=== PATIENT | female | born 1950 | race Caucasian/White ===

== ENCOUNTER 2019-12-21 08:02 | Emergency (ER) | payer OTHER, MEDICARE, MEDICAID ==
[~2019-12-21] VITALS: Ht 160 cm; Wt 94.0 kg
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
[2019-12-21] MEDS ORDERED: ceFAZolin INJECTION 1,000 MG in WATER (STERILE) FOR INJECTION 10 ML IV ONE (08:15)
[2019-12-21] MEDS ORDERED: TETANUS,DIPTH,PERTUSS P/F (BOOSTRIX) 0.5 ML VIAL IM ONE (08:15)
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
--- NOTE | 2019-12-21 09:00 | NUR ---
Consent received from patient, family is updated. Plan transfer to [facility]
[2019-12-21] MEDS ORDERED: ALLO300T2 PO (09:10)
[2019-12-21] MEDS ORDERED: TRAM50TA3 PO (09:10)
[2019-12-21] MEDS ORDERED: LISI-552 PO (09:10)
[2019-12-21] MEDS ORDERED: SLF500T (09:10)
[2019-12-21] MEDS ORDERED: ASPI-999 PO (09:10)
[2019-12-21] MEDS ORDERED: GBPN600T PO (09:10)
[2019-12-21] MEDS ORDERED: GLIM1TAB4 PO (09:10)
[2019-12-21] MEDS ORDERED: ATOR20TA66 PO (09:10)
[2019-12-21] MEDS ORDERED: HYDR12.56 PO (09:10)
[2019-12-21] MEDS ORDERED: LORA10TA7 PO (09:10)
[2019-12-21] MEDS ORDERED: LEVO50TA6 PO (09:10)
[2019-12-21] MEDS ORDERED: fentaNYL INJECTION 100 MCG/2 ML AMP IVP STA (09:13)
--- NOTE | 2019-12-21 09:23 | NUR ---
Report to Gela CASTRO in Pre-op and maintaining patient NPO status [address] Carroll and no solids after midnight. Pt did take ALL home meds prescribed for a.m.
[2019-12-21 09:45] VITALS: BP 130/68
--- NOTE | 2019-12-21 09:48 | NUR ---
Notified Traci at [facility] Transfer [facility] of patient depart and ETA.
== END 2019-12-21 09:45 | disposition short-term general hospital (02) ==
LOC: ER FS 08:05
DX: S62.511B Displaced fracture of proximal phalanx of right thumb, initial encounter for open fracture (principal); Z23 Encounter for immunization; V89.2XXA Person injured in unspecified motor-vehicle accident, traffic, initial encounter
CPT/HCPCS: 73140; 90715

== ENCOUNTER 2021-04-30 12:00 | Observation (INO) | payer MEDICAID, MEDICARE, OTHER ==
[~2021-04-30] VITALS: Ht 161 cm; Wt 90.1 kg
[~2021-04-30 12:00] MED LIST: ALLO300T2 PO; ASPI-999 PO; ATOR20TA66 PO; GBPN600T PO; GLIM1TAB4 PO; HYDR12.56 PO; LEVO50TA6 PO; LISI20TA26 PO; LORA10TA7 PO; SLF500T PO; TRAM50TA3 PO
--- NOTE | 2021-04-30 12:12 | ED Respiratory ---
General Chief Complaint: Respiratory Problems Stated Complaint: SOB History of Present Illness Date Seen by Provider: Apr 30, 2021 Time Seen by Provider: 12:07 Initial Comments 70-year-old female presents with feeling of shortness of breath. Patient reports is been going on for at least a month. Patient states that she was told couple weeks ago she had pneumonia. She had a 10-day course of antibiotics within work. She reports that that antibiotic was changed to one that "did not work" that 2 days ago she was seen by Dr. Galicia and she states that she was given a steroid and her antibiotics switched. She reports that she has "half day of antibiotics left" patient denies any fever. She does have an occasional mild cough. No reports of nausea, vomiting or other systemic complaints Allergies and Home Medications Allergies Coded Allergies: No Known Drug Allergies (Unverified , 12/21/19) Patient Home Medication List Home Medication List Reviewed: Yes Allopurinol (Allopurinol) 300 Mg Tablet, 300 MG PO DAILY, (Reported) Entered as Reported by: VALE MONTANEZ on 12/21/19909 Aspirin (Aspirin) 81 Mg Tab.chew, 81 MG PO DAILY, (Reported) Entered as Reported by: VALE MONTANEZ on 12/21/19909 Atorvastatin Calcium (Atorvastatin Calcium) 20 Mg Tablet, 20 MG PO DAILY, (Reported) Entered as Reported by: VALE MONTANEZ on 12/21/19909 Gabapentin (Gabapentin) 600 Mg Tablet, 600 MG PO QID, (Reported) Entered as Reported by: VALE MONTANEZ on 12/21/19909 Glimepiride (Glimepiride) 1 Mg Tablet, 1 MG PO DAILY, (Reported) Entered as Reported by: VALE MONTANEZ on 12/21/19909 Hydrochlorothiazide (Hydrochlorothiazide) 12.5 Mg Tablet, 12.5 MG PO DAILY, (Reported) Entered as Reported by: VALE MONTANEZ on 12/21/19909 Levothyroxine Sodium (Levothyroxine Sodium) 50 Mcg Tablet, 50 MCG PO DAILY, (Reported) Entered as Reported by: VALE MONTANEZ on 12/21/19909 Lisinopril (Lisinopril) 20 Mg Tablet, 20 MG PO DAILY, (Reported) Entered as Reported by: VALE MONTANEZ on 12/21/19909 Loratadine (Loratadine) 10 Mg Tablet, 10 MG PO DAILY, (Reported) Entered as Reported by: VALE MONTANEZ on 12/21/19909 Sulfasalazine (Sulfasalazine) 500 Mg Tablet, (Reported) Entered as Reported by: VALE MONTANEZ on 12/21/19909 Tramadol HCl (Tramadol HCl) 50 Mg Tablet, 50 MG PO Q6H PRN for PAIN- BREAKTHROUGH, (Reported) Entered as Reported by: VALE MONTANEZ on 12/21/19909 Review of Systems Review of Systems Constitutional: No chills, No fever EENTM: no symptoms reported Respiratory: No cough; short of breath Cardiovascular: No chest pain, No palpitations Gastrointestinal: No abdominal pain, No nausea, No vomiting Genitourinary: no symptoms reported Musculoskeletal: no symptoms reported Skin: no symptoms reported Psychiatric/Neurological: No Symptoms Reported Past Ankfgmw-Vmcwas-Buzehb Hx Immunizations Up To Date Tetanus Booster (TDap): Unknown Seasonal Allergies Seasonal Allergies: No Past Medical History Surgeries: Yes Gallbladder, Tubal Ligation Respiratory: No Cardiac: Yes High Cholesterol, Hypertension Neurological: Yes Neuropathy [employer] History: Tubal Ligation Genitourinary: No Gastrointestinal: Yes Crohns Disease Musculoskeletal: No Endocrine: Yes Hypothyroidsim, Diabetes, Non-Insulin dep HEENT: No Cancer: No Psychosocial: No Integumentary: No Blood Disorders: No Physical Exam Vital Signs - First Documented 04/30/21 12:00 Temp 35.9 Pulse 122 Resp 20 B/P (MAP) 117/88 (98) Pulse Ox 95 O2 Delivery Room Air Capillary Refill : Height: '" Weight: lbs. oz. kg; 36.00 BMI Method: General Appearance: no apparent distress HEENT: PERRL/EOMI Neck: supple Respiratory: decreased breath sounds (mild diffuse ) Cardiovascular: normal peripheral pulses, tachycardia Gastrointestinal: non tender, soft Neurologic/Psychiatric: alert, normal mood/affect, oriented x 3 Skin: normal color, warm/dry Focused Exam Lactate Level 04/30/21 12:15: Lactic Acid Level 1.90 Lactic Acid Level Laboratory Tests Test 04/30/21 12:15 Lactic Acid Level 1.90 MMOL/L (0.50-2.00) Progress/Results/Core Measures Suspected Sepsis SIRS Temperature: Pulse: Respiratory Rate: Laboratory Tests 04/30/21 12:15: White Blood Count 14.0H Blood Pressure / Mean: 04/30/21 12:15: Lactic Acid Level 1.90 Laboratory Tests 04/30/21 12:15: Creatinine 0.69, Platelet Count 537H, Total Bilirubin 0.4 Results/Orders Lab Results Laboratory Tests Test 04/30/21 12:15 04/30/21 12:29 04/30/21 12:34 04/30/21 15:43 Range/Units White Blood Count 14.0 H 4.3-11.0 10^3/uL Red Blood Count 3.96 3.80-5.11 10^6/uL Hemoglobin 12.5 11.5-16.0 g/dL Hematocrit 38 35-52 % Mean Corpuscular Volume 95 80-99 fL Mean Corpuscular Hemoglobin 32 25-34 pg Mean Corpuscular Hemoglobin Concent 33 32-36 g/dL Red Cell Distribution Width 13.5 10.0-14.5 % Platelet Count 537 H 130-400 10^3/uL Mean Platelet Volume 8.4 L 9.0-12.2 fL Immature Granulocyte % (Auto) 1 % Neutrophils (%) (Auto) 81 H 42-75 % Lymphocytes (%) (Auto) 10 L 12-44 % Monocytes (%) (Auto) 5 0-12 % Eosinophils (%) (Auto) 2 0-10 % Basophils (%) (Auto) 1 0-10 % Neutrophils # (Auto) 11.4 H 1.8-7.8 10^3/uL Lymphocytes # (Auto) 1.4 1.0-4.0 10^3/uL Monocytes # (Auto) 0.7 0.0-1.0 10^3/uL Eosinophils # (Auto) 0.3 0.0-0.3 10^3/uL Basophils # (Auto) 0.1 0.0-0.1 10^3/uL Immature Granulocyte # (Auto) 0.1 0.0-0.1 10^3/uL Neutrophils % (Manual) 86 % Lymphocytes % (Manual) 8 % Monocytes % (Manual) 3 % Eosinophils % (Manual) 2 % Band Neutrophils 1 % Platelet Estimate INCREASED Polychromasia SLIGHT Blood Morphology Comment NORMAL D-Dimer 10.66 H 0.00-0.49 UG/ML Sodium Level 136 135-145 MMOL/L Potassium Level 4.0 3.6-5.0 MMOL/L Chloride Level 95 L 98-107 MMOL/L Carbon Dioxide Level 26 21-32 MMOL/L Anion Gap 15 H 5-14 MMOL/L Blood Urea Nitrogen 7 7-18 MG/DL Creatinine 0.69 0.60-1.30 MG/DL Estimat Glomerular Filtration Rate 94 BUN/Creatinine Ratio 10 Glucose Level 138 H 70-105 MG/DL Lactic Acid Level 1.90 0.50-2.00 MMOL/L Calcium Level 9.5 8.5-10.1 MG/DL Corrected Calcium 9.9 8.5-10.1 MG/DL Total Bilirubin 0.4 0.1-1.0 MG/DL Aspartate Amino Transf (AST/SGOT) 35 H 5-34 U/L Alanine Aminotransferase (ALT/SGPT) 26 0-55 U/L Alkaline Phosphatase 254 H 40-136 U/L Troponin I < 0.30 <0.30 NG/ML C-Reactive Protein 21.89 H <0.50 MG/DL Total Protein 7.8 6.4-8.2 GM/DL Albumin 3.5 3.2-4.5 GM/DL Influenza Type A Antigen NEGATIVE NEGATIVE Influenza Type B Antigen NEGATIVE NEGATIVE Test 04/30/21 15:46 Range/Units Blood Gas Puncture Site LT RADIAL Blood Gas Patient Temperature 35.9 C Arterial Blood pH 7.46 H 7.37-7.43 Arterial Blood Partial Pressure CO2 44 35-45 MMHG Arterial Blood Partial Pressure O2 65 L 79-93 MMHG Arterial Blood HCO3 31 H 23-27 MMOL/L Arterial Blood Total CO2 32.7 H 21.0-31.0 MMOL/L Arterial Blood Oxygen Saturation 94 94-100 % Arterial Blood Base Excess 6.6 H -2.5-2.5 MMOL/L Guille Test OK Blood Gas Ventilator Setting NO Blood Gas Inspired Oxygen 90% My Orders Orders - CALI,JACINTA L DO Cbc With Automated Diff (04/30/21 12:12) Comprehensive Metabolic Panel (04/30/21 12:12) Fibrin Degradation Products (04/30/21 12:12) Lactic Acid Analyzer (04/30/21 12:12) Chest Pa/Lat (2 View) (04/30/21 12:12) Crp Fs (04/30/21 12:12) Troponin I Fs (04/30/21 12:12) Albuterol/Ipra Inhalation Soln (Duoneb I (04/30/21 12:15) Svn Small Volume Nebulizer (04/30/21 12:12) Covid 19 Inhouse Test (04/30/21 12:12) Influenza A & B Antigens (04/30/21 12:34) Manual Differential (04/30/21 12:15) Ct Angio Chest W (04/30/21 13:06) Iohexol Injection (Omnipaque 350 Mg/Ml 1 (04/30/21 13:15) Received Contrast (Hold Metformin- Contr (04/30/21 13:15) Sodium Chloride Flush (Catheter Flush Sy (04/30/21 13:15) Ns (Ivpb) (Sodium Chloride 0.9% Ivpb Bag (04/30/21 13:15) Arterial Blood Gas (04/30/21 15:33) Tick Panel With Lyme Eia (04/30/21 15:33) Thyroid Stimulating Hormone (04/30/21 15:33) Medications Given in ED Current Medications Medications Dose Ordered Sig/Sung Route Start Time Stop Time Status Last Admin Dose Admin Albuterol/ Ipratropium 3 ml ONCE ONCE INH 04/30/21 12:15 04/30/21 12:16 DC 04/30/21 12:20 3 ML Iohexol 125 ml ONCE ONCE IV 04/30/21 13:15 04/30/21 13:16 DC 04/30/21 15:15 125 ML Sodium Chloride 10 ml NEEDED PRN IV 04/30/21 13:15 04/30/21 15:16 10 ML Sodium Chloride 100 ml ONCE ONCE IV 04/30/21 13:15 04/30/21 13:16 DC 04/30/21 15:16 100 ML Vital Signs/I&O 04/30/21 12:00 Temp 35.9 Pulse 122 Resp 20 B/P (MAP) 117/88 (98) Pulse Ox 95 O2 Delivery Room Air Capillary Refill : Progress Note : Progress Note Patient with elevated D-dimer, CRP. Patient's heart rate remains in the low 100s with her pulse ox near 92-93. CT exam shows no PE but it does show a moderate pericardial effusion, bilateral pleural effusions. Discussed with Dr. Jones who would like a ABG. After review of the ABG he felt that she would be best evaluated in a hospital setting to further determine the cause of her dyspnea. Patient to be admitted to [facility] in stable condition. Patient will be admitted to the hospitalist with Dr. Jones consult. Diagnostic Imaging Diagonstic Imaging: Xray Plain Films/CT/US/NM/MRI: chest Comments Draft Date of Exam:04/30/21 CHEST PA/LAT (2 VIEW) HISTORY: Shortness of breath TECHNIQUE: 2 views of the chest COMPARISON: None FINDINGS: There is a moderate left pleural effusion and a small right pleural effusion with associated atelectasis. The cardiac silhouette is normal in size. There is aortic atherosclerosis. No pneumothorax is seen. There are advanced degenerative changes throughout the thoracic spine. IMPRESSION: 1. Bilateral pleural effusions, left greater than right, with associated atelectasis. Reviewed: Reviewed by Me, Reviewed/Discussed Departure Impression Primary Impression: Pleural effusion Additional Impressions: Pericardial effusion Dyspnea Qualified Codes: R06.02 - Shortness of breath Disposition: 30 STILL A PATIENT Condition: Stable Admissions Decision to Admit Reason: Admit from ER (General) Decision to Admit/Date: Apr 30, 2021 Time/Decision to Admit Time: 16:39 Departure-Patient Inst. Referrals: LUL GALICIA MD (PCP/Family) Primary Care Physician JACINTA CALI DO Apr 30, 2021 12:11
[2021-04-30] MEDS ORDERED: RT-ALBUTEROL/IPRATROPIUM 3 ML (DUONEB) VIAL INH ONE (12:15)
[2021-04-30 12:26] LABS: BASOPHILS # (AUTO) 0.1 10^3/uL (0.0-0.1); BASOPHILS % (AUTO) 1 % (0-10); EOSINOPHILS # (AUTO) 0.3 10^3/uL (0.0-0.3); EOSINOPHILS % (AUTO) 2 % (0-10); HEMATOCRIT 38 % (35-52); HEMOGLOBIN 12.5 g/dL (11.5-16.0); LYMPHOCYTES # (AUTO) 1.4 10^3/uL (1.0-4.0); LYMPHOCYTES % (AUTO) 10 % (12-44); MEAN CORPUSCULAR HEMOGLOBIN 32 pg (25-34); MEAN CORPUSCULAR HGB CONC 33 g/dL (32-36); MEAN CORPUSCULAR VOLUME 95 fL (80-99); MEAN PLATELET VOLUME 8.4 fL (9.0-12.2); MONOCYTES # (AUTO) 0.7 10^3/uL (0.0-1.0); MONOCYTES % (AUTO) 5 % (0-12); NEUTROPHILS # (AUTO) 11.4 10^3/uL (1.8-7.8); NEUTROPHILS % (AUTO) 81 % (42-75); PLATELET COUNT 537 10^3/uL (130-400)
--- NOTE | 2021-04-30 12:43 | Diagnostic Imaging Report ---
HISTORY: Shortness of breath TECHNIQUE: 2 views of the chest COMPARISON: None FINDINGS: There is a moderate left pleural effusion and a small right pleural effusion with associated atelectasis. The cardiac silhouette is normal in size. There is aortic atherosclerosis. No pneumothorax is seen. There are advanced degenerative changes throughout the thoracic spine. IMPRESSION: 1. Bilateral pleural effusions, left greater than right, with associated atelectasis. Dictated by: Dictated on workstation # [id number]
[2021-04-30 13:00] LABS: BILIRUBIN,TOTAL 0.4 MG/DL (0.1-1.0); BUN/CREATININE RATIO 10; CALCIUM 9.5 MG/DL (8.5-10.1); CARBON DIOXIDE 26 MMOL/L (21-32); CHLORIDE 95 MMOL/L (98-107); CREATININE SERUM 0.69 MG/DL (0.60-1.30); GFR ESTIMATED 94; GLUCOSE 138 MG/DL (70-105); SODIUM 136 MMOL/L (135-145)
[2021-04-30 13:01] LABS: ALANINE AMINOTRANSFERASE 26 U/L (0-55); ALBUMIN 3.5 GM/DL (3.2-4.5); ALKALINE PHOSPHATASE 254 U/L (40-136); TOTAL PROTEIN 7.8 GM/DL (6.4-8.2)
[2021-04-30] MEDS ORDERED: CATHETER FLUSH 10 ML SYR IV PRN (13:15)
[2021-04-30] MEDS ORDERED: NS 100 ML (IVPB) BAG IV ONE (13:15)
[2021-04-30] MEDS ORDERED: IOHEXOL 350 MG/ML 150 ML (OMNIPAQUE 350) VIAL IV ONE (13:15)
[2021-04-30] MEDS ORDERED: HOLD METFORMIN - RECEIVED CONTRAST 20 ML VIAL IV SCH (13:15)
[2021-04-30 13:18] LABS: BAND NEUTROPHILS 1 %; LYMPHOCYTES % (MANUAL) 8 %; MONOCYTES % (MANUAL) 3 %; NEUTROPHILS % (MANUAL) 86 %
[2021-04-30 13:19] LABS: EOSINOPHILS % (MANUAL) 2 %; PLATELET ESTIMATE INCREASED; POLYCHROMASIA SLIGHT; RBC MORPH NORMAL
--- NOTE | 2021-04-30 15:22 | Diagnostic Imaging Report ---
PROCEDURE: CT angiography of the chest with contrast. TECHNIQUE: Multiple contiguous axial images were obtained through the chest after uneventful bolus administration of intravenous contrast. 3D reconstructed CTA MIP acquisitions were also performed. Auto Exposure Controls were utilized during the CT exam to meet ALARA standards for radiation dose reduction. INDICATION: Shortness of breath and elevated D-dimer. COMPARISON: No prior studies are available for comparison. FINDINGS: Evaluation of the pulmonary arterial system is without evidence of thromboembolism. No filling defects are seen within central, lobar, or segmental branches. The thoracic aorta shows atherosclerotic calcifications but is nonaneurysmal. No dissection is identified. There is a moderate-sized pericardial effusion. There are moderate bilateral pleural effusions. There is some consolidation in the lingula with air bronchograms. Dependent atelectasis and consolidation in the left lower lobe is noted. There is some compressive atelectasis in the right lower lobe. Upper abdomen is unremarkable. IMPRESSION: 1. No evidence of pulmonary embolism or acute aortic disease. 2. Pericardial effusion and bilateral pleural effusions. 3. Areas of parenchymal consolidation in the lingula and both lower lobes. Dictated by: Dictated on workstation # [id number]
[2021-04-30 16:13] LABS: ABG BASE EXCESS 6.6 MMOL/L (-2.5-2.5); ABG OXYGEN SATURATION 94 % (94-100); ABG PCO2 44 MMHG (35-45); ABG PH 7.46 (7.37-7.43); ABG PO2 65 MMHG (79-93); ABG TCO2 32.7 MMOL/L (21.0-31.0); ALLENS TEST OK; INSPIRED O2 90%; VENTILATOR NO
[2021-04-30 16:14] LABS: PATIENT TEMP 35.9 C
[2021-04-30] MEDS ORDERED: LIDOCAINE PF 2% 5 ML (XYLOCAINE) VIAL INJ ONE (17:49)
[2021-04-30] MEDS ORDERED: SUCCINYLCHOLINE INJ 20 MG/1 ML 10 ML VIAL INJ ONE (17:49)
[2021-04-30] MEDS ORDERED: LIDOCAINE PF 1% 2 ML VIAL IJ ONE (17:49)
[2021-04-30 18:00] VITALS: BP 141/74
[2021-04-30] MEDS ORDERED: NALOXONE 0.4 MG/ML 1 ML (NARCAN) VIAL IV PRN (18:00)
[2021-04-30] MEDS ORDERED: polyethylene glycoL POWDER 17 GM (MIRALAX) PACK PO PRN (18:00)
[2021-04-30] MEDS ORDERED: diphenhydrAMINE 25 MG TAB (BENADRYL) PO PRN (18:00)
[2021-04-30] MEDS ORDERED: diphenhydrAMINE 50 MG/ML INJ (BENADRYL) IVP PRN (18:00)
[2021-04-30] MEDS ORDERED: ANTACID SUSP 30 ML UDC (MYLANTA) PO PRN (18:00)
[2021-04-30] MEDS ORDERED: BISACODYL 10 MG SUPP (DULCOLAX) PR PRN (18:00)
[2021-04-30] MEDS ORDERED: ONDANSETRON 4 MG/2 ML (SDV) Z0FRAN IV PRN (18:00)
[2021-04-30] MEDS ORDERED: MELATONIN 3 MG TABLET PO PRN (18:00)
[2021-04-30] MEDS ORDERED: ONDANSETRON 4 MG (ZOFRAN) ORAL DISSOLVE TAB PO PRN (18:00)
[2021-04-30] MEDS ORDERED: morphine INJ 4 MG/ML 1 ML (VIAL/SYRINGE) IV PRN (18:00)
[2021-04-30] MEDS ORDERED: ACETAMINOPHEN 325 MG TABLET PO PRN (18:00)
[2021-04-30 18:15] VITALS: BP 117/88
[2021-04-30] MEDS ORDERED: NS IV 1000 ML 1,000 ML ONE (18:15)
[2021-04-30] MEDS: NS IV 1000 ML 1,000 ML IV SCH (18:21)
[2021-04-30] MEDS: ENOXAPARIN 100 MG/1 ML (LOVENOX) SYR SC SCH (18:36)
[2021-04-30] MEDS ORDERED: RT-ALBUTEROL/IPRATROPIUM 3 ML (DUONEB) VIAL INH PRN (19:00)
[2021-04-30] MEDS: DOCUSATE SODIUM 100 MG (COLACE) CAP PO SCH (19:27)
[2021-04-30 19:28] VITALS: BP 141/74
[2021-04-30 19:32] VITALS: BP 139/75
--- NOTE | 2021-04-30 20:18 | Consultation - Surgery ---
History of Present Illness History of Present Illness Patient Consulted On(braxton/time) 04/30/21 20:09 Time Seen by Provider: 18:56 History of Present Illness Surgery asked to consult regarding Pleural effusion and possible need for Bronchoscopy. HPI per ED: 70-year-old female presents with feeling of shortness of breath. Patient reports is been going on for at least a month. Patient states that she was told couple weeks ago she had pneumonia. She had a 10-day course of antibiotics within work. She reports that that antibiotic was changed to one that "did not work" that 2 days ago she was seen by Dr. Aldrich and she states that she was given a steroid and her antibiotics switched. She reports that she has "half day of antibiotics left" patient denies any fever. She does have an occasional mild cough. No reports of nausea, vomiting or other systemic complaints When I spoke to pt maylin she states she has had pneumonia for over a month now and has been on multiple ABX. She states about a month ago was having some trouble breathing and was told she had pneumonia, took ABX for 10 days; but wasn't any better. All of this started with pain on the left side, after the fi rst round of ABX didn't work she was started on a different ABX. However, then she got pain on the right side and so her doctor stopped the second ABX. She stated when she lies on her left side, "I cough up a bunch of junk. Clear and slimy." She denied coughing anything up green or yellow. Prior to this she denies any lung problems. She states she has smoked about a pack per day since she was 18. Allergies and Home Medications Allergies Coded Allergies: No Known Drug Allergies (Unverified , 12/21/19) Patient Home Medication List Home Medication List Reviewed: Yes Allopurinol (Allopurinol) 300 Mg Tablet, 300 MG PO DAILY, (Reported) Entered as Reported by: VALE MONTANEZ on 12/21/19909 Aspirin (Aspirin) 81 Mg Tab.chew, 81 MG PO DAILY, (Reported) Entered as Reported by: VALE MONTANEZ on 12/21/19 09 Atorvastatin Calcium (Atorvastatin Calcium) 20 Mg Tablet, 20 MG PO DAILY, (Reported) Entered as Reported by: VALE MONTANEZ on 12/21/19909 Gabapentin (Gabapentin) 600 Mg Tablet, 600 MG PO QID, (Reported) Entered as Reported by: VALE MONTANEZ on 12/21/19909 Glimepiride (Glimepiride) 1 Mg Tablet, 1 MG PO DAILY, (Reported) Entered as Reported by: VALE MONTANEZ on 12/21/19909 Hydrochlorothiazide (Hydrochlorothiazide) 12.5 Mg Tablet, 12.5 MG PO DAILY, (Reported) Entered as Reported by: VALE MONTANEZ on 12/21/19909 Levothyroxine Sodium (Levothyroxine Sodium) 50 Mcg Tablet, 50 MCG PO DAILY, (Reported) Entered as Reported by: VALE MONTANEZ on 12/21/19909 Lisinopril (Lisinopril) 20 Mg Tablet, 20 MG PO DAILY, (Reported) Entered as Reported by: VALE MONTANEZ on 12/21/19909 Loratadine (Loratadine) 10 Mg Tablet, 10 MG PO DAILY, (Reported) Entered as Reported by: VALE MONTANEZ on 12/21/19909 Sulfasalazine (Sulfasalazine) 500 Mg Tablet, (Reported) Entered as Reported by: VALE MONTANEZ on 12/21/19909 Tramadol HCl (Tramadol HCl) 50 Mg Tablet, 50 MG PO Q6H PRN for PAIN- BREAKTHROUGH, (Reported) Entered as Reported by: VALE MONTANEZ on 12/21/19909 Past Pwzzjor-Mjockq-Xqhcjr Hx Patient Social History Smoking Status: Current Everyday Smoker Type Used: Cigarettes 2nd Hand Smoke Exposure: Yes Recent Hopitalizations: No Alcohol Use?: No Have you traveled recently?: No Immunizations Up To Date Tetanus Booster (TDap): Unknown Date of Influenza Vaccine: Oct 31, 2020 Seasonal Allergies Seasonal Allergies: No Surgeries History of Surgeries: Yes Surgeries: Gallbladder, Tubal Ligation Respiratory History of Respiratory Disorde: No Cardiovascular History of Cardiac Disorders: Yes Cardiac Disorders: High Cholesterol, Hypertension Neurological History of Neurological Disord: Yes Neurological Disorders: Neuropathy 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 Genitourinary History of Genitourinary Disor: No Gastrointestinal History of Gastrointestinal Di: Yes Gastrointestinal Disorders: Crohns Disease Musculoskeletal History of Musculoskeletal Dis: No Endocrine History of Endocrine Disorders: Yes Endocrine Disorders: Hypothyroidsim, Diabetes, Non-Insulin dep HEENT History of HEENT Disorders: No Hearing Impairment: Denies Cancer History of Cancer: No Psychosocial History of Psychiatric Problem: No Integumentary History of Skin or Integumenta: No Blood Transfusions History of Blood Disorders: No Family Medical History Significant Family History: Heart Disease (Mother from [place]), Hypertension (Father) Review of Systems-General Constitutional: No chills, No diaphoresis; malaise EENTM: No blurred vision, No double vision Respiratory: cough; No dyspnea on exertion, No hemoptysis; short of breath Cardiovascular: No chest pain, No edema Gastrointestinal: No abdominal pain, No jaundice, No melena, No nausea, No vomiting Genitourinary: No dysuria, No frequency, No hematuria : No Musculoskeletal: muscle pain, muscle stiffness Skin: No change in color, No change in hair/nails Psychiatric/Neurological: Denies Anxiety, Denies Depressed; Paresthesia; Denies Seizure, Denies Tremors Physical Exam-General Problems Physical Exam Vital Signs Vital Signs - First Documented 04/30/21 04/30/21 04/30/21 12:00 16:58 18:15 Temp 35.9 Pulse 122 Resp 20 B/P (MAP) 117/88 (98) Pulse Ox 95 O2 Delivery Room Air O2 Flow Rate 2.00 FiO2 21 Capillary Refill : Less Than 3 Seconds General Appearance: no apparent distress, obese Eyes: Bilateral Eye PERRL, Bilateral Eye EOMI HEENT: pharynx normal; No scleral icterus (R), No scleral icterus (L) Neck: non-tender, supple Respiratory: chest non-tender, no respiratory distress, no accessory muscle use, decreased breath sounds (bilaterally left greater than right at bases ), crackles (left base) Cardiovascular: no murmur, tachycardia (??muffled) Gastrointestinal: non tender, soft, no organomegaly, no pulsatile mass Back: no CVA tenderness, no vertebral tenderness Extremities: no pedal edema, no calf tenderness 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, alert, oriented x 3 Skin: normal color, warm/dry Lymphatic: no adenopathy (neck, axilla or groin) Data Review Labs Laboratory Tests 04/30/21 12:15: White Blood Count 14.0H, Red Blood Count 3.96, Hemoglobin 12.5, Hematocrit 38, Mean Corpuscular Volume 95, Mean Corpuscular Hemoglobin 32, Mean Corpuscular Hemoglobin Concent 33, Red Cell Distribution Width 13.5, Platelet Count 537H, Mean Platelet Volume 8.4L, Immature Granulocyte % (Auto) 1, Neutrophils (%) (Auto) 81H, Lymphocytes (%) (Auto) 10L, Monocytes (%) (Auto) 5, Eosinophils (%) (Auto) 2, Basophils (%) (Auto) 1, Neutrophils # (Auto) 11.4H, Lymphocytes # (Auto) 1.4, Monocytes # (Auto) 0.7, Eosinophils # (Auto) 0.3, Basophils # (Auto) 0.1, Immature Granulocyte # (Auto) 0.1, Neutrophils % (Manual) 86, Lymphocytes % (Manual) 8, Monocytes % (Manual) 3, Eosinophils % (Manual) 2, Band Neutrophils 1, Platelet Estimate INCREASED, Polychromasia SLIGHT, Blood Morphology Comment NORMAL, D-Dimer 10.66H, Sodium Level 136, Potassium Level 4.0, Chloride Level 95L, Carbon Dioxide Level 26, Anion Gap 15H, Blood Urea Nitrogen 7, Creatinine 0.69, Estimat Glomerular Filtration Rate 94, BUN/Creatinine Ratio 10, Glucose Level 138H, Lactic Acid Level 1.90, Calcium Level 9.5, Corrected Calcium 9.9, Total Bilirubin 0.4, Aspartate Amino Transf (AST/SGOT) 35H, Alanine Aminotransferase (ALT/SGPT) 26, Alkaline Phosphatase 254H, Troponin I < 0.30, C- Reactive Protein 21.89H, Total Protein 7.8, Albumin 3.5 04/30/21 12:29: SARS-CoV-2 RNA (RT-PCR) Not Detected 04/30/21 12:34: Influenza Type A Antigen NEGATIVE, Influenza Type B Antigen NEGATIVE 04/30/21 15:43: 04/30/21 15:46: Blood Gas Puncture Site LT RADIAL, Blood Gas Patient Temperature 35.9 C, Arterial Blood pH 7.46H, Arterial Blood Partial Pressure CO2 44, Arterial Blood Partial Pressure O2 65L, Arterial Blood HCO3 31H, Arterial Blood Total CO2 32.7H , Arterial Blood Oxygen Saturation 94, Arterial Blood Base Excess 6.6H, Guille Test OK, Blood Gas Ventilator Setting NO, Blood Gas Inspired Oxygen 90% Radiology Date of Exam:04/30/21 CT ANGIO CHEST W PROCEDURE: CT angiography of the chest with contrast. TECHNIQUE: Multiple contiguous axial images were obtained through the chest after uneventful bolus administration of intravenous contrast. 3D reconstructed CTA MIP acquisitions were also performed. Auto Exposure Controls were utilized during the CT exam to meet ALARA standards for radiation dose reduction. INDICATION: Shortness of breath and elevated D-dimer. COMPARISON: No prior studies are available for comparison. FINDINGS: Evaluation of the pulmonary arterial system is without evidence of thromboembolism. No filling defects are seen within central, lobar, or segmental branches. The thoracic aorta shows atherosclerotic calcifications but is nonaneurysmal. No dissection is identified. There is a moderate-sized pericardial effusion. There are moderate bilateral pleural effusions. There is some consolidation in the lingula with air bronchograms. Dependent atelectasis and consolidation in the left lower lobe is noted. There is some compressive atelectasis in the right lower lobe. Upper abdomen is unremarkable. IMPRESSION: 1. No evidence of pulmonary embolism or acute aortic disease. 2. Pericardial effusion and bilateral pleural effusions. 3. Areas of parenchymal consolidation in the lingula and both lower lobes. Dictated by: Dictated on workstation # [id number] Dict: 04/30/21 1515 Trans: 04/30/21 1547 [id number] Interpreted by: MARSHALL JOHNSON MD Electronically signed by: MARSHALL JOHNSON MD 04/30/21 1547 Assessment/Plan Assessment/Plan Assessment/Plan Bilateral Pleural Effusions Pericardial Effusion Pneumonia Pt may benefit from Bronchoscopy, it will at the very least give us some more information; she has been treated for pneumonia for a month with basically no improvement. She also needs Cardiology consult regarding her pericardial effusion; although, I don't think she has any indications of tamponade or need for pericardiocentesis at this time. O2 as needed, monitor Pulse ox and vitals. Clears after midnight and nothing after 9am for possible Bronchoscopy tomorrow. HI VELÁSQUEZ DO Apr 30, 2021 20:18
[2021-04-30] MEDS: inSUlin ASPART (NovoLOG) 1 UNIT/0.01 ML (CHARGE PER UNIT) SC SCH (20:41)
[2021-04-30] MEDS: RT-ALBUTEROL/IPRATROPIUM 3 ML (DUONEB) VIAL INH SCH (22:08)
[2021-04-30 23:40] VITALS: BP 147/74
[2021-05-01] VITALS (13 sets, daily range): BP systolic 109–170; BP diastolic 56–107
[2021-05-01] MEDS: RT-ALBUTEROL/IPRATROPIUM 3 ML (DUONEB) VIAL INH SCH ×4 (02:59→23:12)
[2021-05-01] MEDS: ENOXAPARIN 100 MG/1 ML (LOVENOX) SYR SC SCH ×2 (05:04→17:38)
[2021-05-01] MEDS: inSUlin ASPART (NovoLOG) 1 UNIT/0.01 ML (CHARGE PER UNIT) SC SCH ×4 (05:04→21:08)
[2021-05-01 05:26] LABS: BASOPHILS # (AUTO) 0.1 10^3/uL (0.0-0.1); BASOPHILS % (AUTO) 0 % (0-10); EOSINOPHILS # (AUTO) 0.4 10^3/uL (0.0-0.3); EOSINOPHILS % (AUTO) 3 % (0-10); HEMATOCRIT 36 % (35-52); HEMOGLOBIN 11.4 g/dL (11.5-16.0); LYMPHOCYTES # (AUTO) 1.4 10^3/uL (1.0-4.0); LYMPHOCYTES % (AUTO) 9 % (12-44); MEAN CORPUSCULAR HEMOGLOBIN 31 pg (25-34); MEAN CORPUSCULAR HGB CONC 32 g/dL (32-36); MEAN CORPUSCULAR VOLUME 98 fL (80-99); MEAN PLATELET VOLUME 8.5 fL (9.0-12.2); MONOCYTES # (AUTO) 0.9 10^3/uL (0.0-1.0); MONOCYTES % (AUTO) 6 % (0-12); NEUTROPHILS # (AUTO) 11.9 10^3/uL (1.8-7.8); NEUTROPHILS % (AUTO) 82 % (42-75); PLATELET COUNT 493 10^3/uL (130-400); WHITE BLOOD COUNT 14.6 10^3/uL (4.3-11.0)
[2021-05-01 05:29] LABS: ALBUMIN 3.2 GM/DL (3.2-4.5); POTASSIUM 3.9 MMOL/L (3.6-5.0)
[2021-05-01 05:30] LABS: CALCIUM 9.4 MG/DL (8.5-10.1)
[2021-05-01 05:31] LABS: TOTAL PROTEIN 6.9 GM/DL (6.4-8.2)
[2021-05-01 05:33] LABS: BILIRUBIN,TOTAL 0.4 MG/DL (0.1-1.0)
[2021-05-01 05:35] LABS: CREATININE SERUM 0.72 MG/DL (0.60-1.30)
--- NOTE | 2021-05-01 06:29 | History & Physical-Hospitalist ---
History of Present Illness HPI/Chief Complaint Chief complaint: Shortness of breath History of present illness: This is a 70-year-old white female who presented to [facility] with shortness of breath. She had been struggling with upper respiratory illnesses and pneumonias and has had 3 rounds of antibiotics from her PCP but continued to worsen. She was found to have bilateral pleural effusions and a pericardial effusion and requiring oxygen supplementation for hypoxia. Dr. Arredondo was willing to perform a bronchoscopy and Dr. Jones is pursuing sources of causation of pleural effusions. Patient does not appear to have any active infection. She is not willing to provide details because she just wants to go home. She appears to be very chronically ill and she does smoke. Source: patient Exam Limitations: other (Unwilling to provide details in depth) Date Seen 05/01/21 Time Seen by a Provider: 10:00 Attending Physician Yeny Hardwick Pankaj K MD Referring Physician Date of Admission Apr 30, 2021 at 17:48 Home Medications & Allergies Home Medications Reviewed patient Home Medication Reconciliation performed by pharmacy medication reconciliations bench lay out technician and/or nursing. Patients Allergies have been reviewed. Allergies Allergies Coded Allergies No Known Drug Allergies (Juosligpga72/30/20) Past Lqpwbka-Atxgee-Fjomhz Hx Patient Social History Marrital Status: Employed/Student: retired Tobacco Use?: Yes Tobacco type used: Cigarettes Smoking Status: Current Everyday Smoker Substance use?: No Alcohol Use?: No Pt feels they are or have been: No Immunizations Up To Date Date of Influenza Vaccine: Oct 31, 2020 First/Initial COVID19 Vaccinat: Yes Second COVID19 Vaccination Philip: Yes Tetanus Booster (TDap): Unknown Seasonal Allergies Seasonal Allergies: No Current Status status: No status: No Advance Directives: No Communicates: Verbally Primary Language: Czech Preferred Spoken Language: Czech Is interpretation needed?: No Sensory deficits: Vision impairment Implanted or Applied Medical D: None Past Medical History Surgeries: Gallbladder, Tubal Ligation High Cholesterol, Hypertension 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 Crohns Disease Hypothyroidsim, Diabetes, Non-Insulin dep Hearing Impairment: Denies Blood Disorders: No Family Medical History Heart Disease (Mother from [place]), Hypertension (Father) Review of Systems Constitutional: see HPI, malaise, weakness EENTM: no symptoms reported Respiratory: dyspnea on exertion Cardiovascular: no symptoms reported Gastrointestinal: no symptoms reported Genitourinary: no symptoms reported Musculoskeletal: no symptoms reported Skin: no symptoms reported Psychiatric/Neurological: No Symptoms Reported All Other Systems Reviewed Negative Unless Noted: Yes Physical Exam Physical Exam Vital Signs Vital Signs - First Documented 04/30/21 04/30/21 04/30/21 12:00 16:58 18:15 Temp 35.9 Pulse 122 Resp 20 B/P (MAP) 117/88 (98) Pulse Ox 95 O2 Delivery Room Air O2 Flow Rate 2.00 FiO2 21 Capillary Refill : Less Than 3 Seconds Height, Weight, BMI Height: '" Weight: lbs. oz. kg; 33.75 BMI Method: General Appearance: No Apparent Distress, Chronically ill, Obese Eyes: Right Eye Normal Inspection, Right Eye PERRL HEENT: PERRL/EOMI, Normal ENT Inspection, Pharynx Normal, Moist Mucous Membranes Neck: Full Range of Motion, Normal Inspection, Non Tender Respiratory: Chest Non Tender, Lungs Clear, Normal Breath Sounds, No Accessory Muscle Use, No Respiratory Distress Cardiovascular: Regular Rate, Rhythm, No Edema, No Gallop, No JVD, No Murmur, Normal Peripheral Pulses Gastrointestinal: Normal Bowel Sounds, No Organomegaly, No Pulsatile Mass, Non Tender, Soft Back: Normal Inspection, No CVA Tenderness, No Vertebral Tenderness Extremity: Normal Capillary Refill, Normal Inspection, Normal Range of Motion, Non Tender, No Calf Tenderness, No Pedal Edema Neurologic/Psychiatric: Alert, Oriented x3, No Motor/Sensory Deficits, Depressed Affect Skin: Normal Color, Warm/Dry Lymphatic: No Adenopathy Results Results/Procedures Labs Laboratory Tests 04/30/21 12:15 05/01/21 05:10 Patient resulted labs reviewed. Assessment/Plan Admission Diagnosis Assessment: Dyspnea Recurrent pneumonia completed multiple rounds of antibiotics Hypoxia requiring supplemental oxygen Pericardial effusion Pleural effusions Smoker Crohn's disease Hypothyroidism Diabetes Hypertension Plan: Bronchoscopy Dr. Jones Consult Oxygen Admission Status: Inpatient Order (span 2 midnights) Reason for Inpatient Admission: Pleural effusions and pericardial effusion Diagnosis/Problems Diagnosis/Problems (1) Pericardial effusion Status: Acute (2) Dyspnea Status: Acute Qualifiers: Dyspnea type: shortness of breath Qualified Codes: R06.02 - Shortness of breath (3) Pleural effusion Status: Acute YENY HARDWICK DO May 01, 2021 06:29
[2021-05-01] MEDS: DOCUSATE SODIUM 100 MG (COLACE) CAP PO SCH ×2 (07:32→21:07)
--- NOTE | 2021-05-01 08:50 | Progress Note - Surgery ---
LAURA MCCLELLAN 05/01/21 0850: Subjective Date Seen by a Provider: May 01, 2021 Time Seen by a Provider: 08:30 Subjective/Events-last exam Pt unsettled this morning, wants to go home. She was NPO overnight and was very thirsty. She was given a glass of water before 9am. The patient's only complaints are coughing fits (she coughs up clear phlegm) and chronic neuropathy in her feet. She had a bowel movement yesterday that was brown with no blood. Wants to speak with Dr. Arredondo about the bronchoscopy. Does not remember speaking with him last night; not sure if she wants to have it done. Denies CP, SOB, N/V/D, and fever at this time. Review of Systems General: No Chills; Fatigue HEENT: No Head Aches, No Visual Changes Pulmonary: No Dyspnea; Cough Cardiovascular: No: Chest Pain, Palpitations Gastrointestinal: No: Nausea, Vomiting, Abdominal Pain, Diarrhea Genitourinary: No Dysuria, No Frequency Musculoskeletal: No: neck pain, leg pain Neurological: No: Weakness, Change in speech Focused Exam Lactate Level 04/30/21 12:15: Lactic Acid Level 1.90 Respiratory: No Accessory Muscle Use, No Respiratory Distress, Decreased Breath Sounds, Wheezing Cardiovascular: No Murmur, Tachycardia Peripheral Pulses: 2+ Radial Pulses (R), 2+ Radial Pulses (L) Skin: normal color, warm/dry Objective Exam Vital Signs Date Time Temp Pulse Resp B/P (MAP) Pulse Ox O2 Delivery O2 Flow Rate FiO2 05/01/21 07:00 106 14 95 Nasal Cannula 4.00 05/01/21 07:00 111 05/01/21 05:07 95 Nasal Cannula 4.00 05/01/21 03:41 36.4 114 18 145/84 (104) 94 Nasal Cannula 4.00 05/01/21 02:59 97 Nasal Cannula 4.00 05/01/21 02:27 95 Nasal Cannula 4.00 05/01/21 01:00 115 04/30/21 23:40 36.6 112 18 147/74 (98) 95 Nasal Cannula 4.00 04/30/21 22:26 95 Nasal Cannula 4.00 04/30/21 22:11 Nasal Cannula 4.00 04/30/21 20:45 96 Nasal Cannula 4.00 04/30/21 19:32 110 18 139/75 (96) 96 Nasal Cannula 2.00 04/30/21 18:15 35.9 122 95 21 04/30/21 18:08 109 04/30/21 18:00 112 17 141/74 (96) 89 Nasal Cannula 2.00 04/30/21 18:00 95 Nasal Cannula 4.00 04/30/21 17:47 36.1 112 26 141/74 95 Nasal Cannula 4.00 04/30/21 16:58 35.9 105 18 116/95 98 Nasal Cannula 2.00 04/30/21 12:00 35.9 122 20 117/88 (98) 95 Room Air I & O 05/01/21 07:00 Intake Total 1420 ml Output Total 500 ml Balance 920 ml Capillary Refill : Less Than 3 Seconds General Appearance: Anxious (to go home), Obese Respiratory: No Accessory Muscle Use, No Respiratory Distress, Decreased Breath Sounds, Wheezing Cardiovascular: No Murmur, Tachycardia Peripheral Pulses: 2+ Radial Pulses (R), 2+ Radial Pulses (L) Gastrointestinal: non tender, soft, no organomegaly, no pulsatile mass Extremity: Normal Inspection, Pedal Edema Neurologic/Psychiatric: Alert, Oriented x3, Normal Mood/Affect Skin: Normal Color, Warm/Dry Results Lab Laboratory Tests 04/30/21 12:15: White Blood Count 14.0H, Red Blood Count 3.96, Hemoglobin 12.5, Hematocrit 38, Mean Corpuscular Volume 95, Mean Corpuscular Hemoglobin 32, Mean Corpuscular Hemoglobin Concent 33, Red Cell Distribution Width 13.5, Platelet Count 537H, Mean Platelet Volume 8.4L, Immature Granulocyte % (Auto) 1, Neutrophils (%) (Auto) 81H, Lymphocytes (%) (Auto) 10L, Monocytes (%) (Auto) 5, Eosinophils (%) (Auto) 2, Basophils (%) (Auto) 1, Neutrophils # (Auto) 11.4H, Lymphocytes # (Auto) 1.4, Monocytes # (Auto) 0.7, Eosinophils # (Auto) 0.3, Basophils # (Auto) 0.1, Immature Granulocyte # (Auto) 0.1, Neutrophils % (Manual) 86, Lymphocytes % (Manual) 8, Monocytes % (Manual) 3, Eosinophils % (Manual) 2, Band Neutrophils 1, Platelet Estimate INCREASED, Polychromasia SLIGHT, Blood Morphology Comment NORMAL, D-Dimer 10.66H, Sodium Level 136, Potassium Level 4.0, Chloride Level 95L, Carbon Dioxide Level 26, Anion Gap 15H, Blood Urea Nitrogen 7, Creatinine 0.69, Estimat Glomerular Filtration Rate 94, BUN/Creatinine Ratio 10, Glucose Level 138H, Lactic Acid Level 1.90, Calcium Level 9.5, Corrected Calcium 9.9, Total Bilirubin 0.4, Aspartate Amino Transf (AST/SGOT) 35H, Alanine Aminotransferase (ALT/SGPT) 26, Alkaline Phosphatase 254H, Troponin I < 0.30, C- Reactive Protein 21.89H, Total Protein 7.8, Albumin 3.5 04/30/21 12:29: SARS-CoV-2 RNA (RT-PCR) Not Detected 04/30/21 12:34: Influenza Type A Antigen NEGATIVE, Influenza Type B Antigen NEGATIVE 04/30/21 15:43: 04/30/21 15:46: Blood Gas Puncture Site LT RADIAL, Blood Gas Patient Temperature 35.9 C, Arterial Blood pH 7.46H, Arterial Blood Partial Pressure CO2 44, Arterial Blood Partial Pressure O2 65L, Arterial Blood HCO3 31H, Arterial Blood Total CO2 32.7H , Arterial Blood Oxygen Saturation 94, Arterial Blood Base Excess 6.6H, Guille Test OK, Blood Gas Ventilator Setting NO, Blood Gas Inspired Oxygen 90% 04/30/21 20:37: Glucometer 112H 05/01/21 05:02: Glucometer 116H 05/01/21 05:10: White Blood Count 14.6H, Red Blood Count 3.68L, Hemoglobin 11.4L, Hematocrit 36, Mean Corpuscular Volume 98, Mean Corpuscular Hemoglobin 31, Mean Corpuscular Hemoglobin Concent 32, Red Cell Distribution Width 13.7, Platelet Count 493H, Mean Platelet Volume 8.5L, Immature Granulocyte % (Auto) 1, Neutrophils (%) (Auto) 82H, Lymphocytes (%) (Auto) 9L, Monocytes (%) (Auto) 6, Eosinophils (%) (Auto) 3, Basophils (%) (Auto) 0, Neutrophils # (Auto) 11.9H, Lymphocytes # (Auto) 1.4, Monocytes # (Auto) 0.9, Eosinophils # (Auto) 0.4H, Basophils # (Auto) 0.1, Immature Granulocyte # (Auto) 0.1, Sodium Level 135, Potassium Level 3.9, Chloride Level 99, Carbon Dioxide Level 22, Anion Gap 14, Blood Urea Nitrogen 8, Creatinine 0.72, Estimat Glomerular Filtration Rate 91, BUN/Creatinine Ratio 11, Glucose Level 120H, Calcium Level 9.4, Corrected Calcium 10.0, Total Bilirubin 0.4, Aspartate Amino Transf (AST/SGOT) 28, Alanine Aminotransferase (ALT/SGPT) 21, Alkaline Phosphatase 203H, Total Protein 6.9, Albumin 3.2 Assessment/Plan Assessment/Plan Assessment/Plan Bilateral Pleural Effusions Pericardial Effusion Pneumonia NPO after 9am Will need to discuss possible Bronchoscopy again with pt Cardiology consult regarding her pericardial effusion O2 as needed Monitor Pulse ox and vitals KWABENA ARREDONDO DO 05/01/21 1346: Subjective Time Seen by a Provider: 11:59 Subjective/Events-last exam Pt seen and examined, states she is breathing ok and really wants to go home. She has questions about bronchoscopy. Family members in the room. Review of Systems General: No Chills; Fatigue HEENT: No Head Aches, No Visual Changes Pulmonary: No Dyspnea; Cough Cardiovascular: No: Chest Pain, Palpitations Gastrointestinal: No: Nausea, Vomiting, Abdominal Pain Genitourinary: No Dysuria, No Frequency Objective Exam General Appearance: Anxious (to go home), Obese Respiratory: No Accessory Muscle Use, No Respiratory Distress, Decreased Breath Sounds, Wheezing Cardiovascular: No Murmur, Tachycardia Gastrointestinal: non tender, soft Assessment/Plan Assessment/Plan Assessment/Plan Bilateral Pleural Effusions Pericardial Effusion Pneumonia NPO after 9am, I went over reasons for Bronchoscopy with pt and family members. We discussed risks and complications not limited to pain, bleeding, infection even pneumothorax. The benefit it to make sure there is not something causing obstruction. Can do biopsy, brushing, washing or whatever is needed. O2 as needed, Monitor Pulse ox and vitals Monitor Pulse ox and vitals Cardiology consulted regarding her pericardial effusion Supervisory-Addendum Brief Verification & Attestation Participated in pt care: history, MDM, physical Personally performed: exam, history, MDM, supervision of care Care discussed with: Medical Student Procedures: n/a Verification and Attestation of Medical Student E/M Service A medical student performed and documented this service. I then reviewed and verified all information documented by the medical student and made modifications to such information, when appropriate. I personally performed a physical exam, medical decision making and then discussed any differences between the notes and made revisions as necessary to create one note. Kwabena Arredondo , 05/01/21 , 13:46 LAURA MCCLELLAN May 01, 2021 08:50 KWABENA ARREDONDO DO May 01, 2021 13:46
[2021-05-01] MEDS ORDERED: CYCL10TA25 PO (09:18)
[2021-05-01] MEDS ORDERED: FURO20TA4 PO (09:18)
[2021-05-01] MEDS ORDERED: MULT400C3 PO (09:26)
--- NOTE | 2021-05-01 09:30 | Physical Therapy Evaluation ---
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 5-Nefumsowzr-adoitcm completes the activity by him/herself with no assistance from a helper. 5-Set-up or Clean-up Assistance-helper sets up or cleans up; patient completes activity. [place] assists only prior to or following the activity. 4-Supervision or Touching Assistance-helper provides verbal cues and/or touching/steadying and/or contact guard assistance as patient completes activity. Assistance may be provided throughout the activity or intermittently. 3-Partial/Moderate Assistance-helper does LESS THAN HALF the effort. [place] lifts, holds or supports trunk or limbs, but provides less than half the effort. 2-Substantial/Maximal Assistance-helper does MORE THAN HALF the effort. [place] lifts or holds trunk or limbs and provides more than half the effort. 1-Xbtqxzqek-kivrpu does ALL the effort. Patient does none of the effort to complete the activity. Or, the assistance of 2 or more helpers is required for the patient to complete the activity. If activity was not attempted, code reason: 7-Patient Refused. 9-Not Applicable-not attempted and the patient did not perform the activity before the current illness, exacerbation or injury. 10-Not Attempted due to Environmental Limitations-(lack of equipment, weather restraints, etc.). 88-Not Attempted due to Medical Conditions or Safety Concerns. Bed Mobility: 6 Transfers (B,C,W/C): 6 Gait: 6 Indoor Mobility (Ambulation): Independent Prior Devices Use: None PT Evaluation-Current Subjective Patient in bed pre tx, agrees to PT but states she needs to use the restroom. Patient seems very irritated and states that she just wants to go home. Pt/Family Goals none stated Objective Patient Orientation: Person, Place, Situation Attachments: IV ROM/Strength ROM Lower Extremities WNL Sensory Hearing: Functional Transfers Roll Left to Right (QC): 6 Sit to Lying (QC): 6 Lying to Sitting/Side of Bed(Q: 6 Sit to Stand (QC): 4 Chair/Kyg-bz-Xnxqd Xfer(QC): 4 Patient gets out of bed with independence, stands with SBA and ambulates to the restroom, toilets without assist, and ambulates back to a recliner. Patient is a little unsteady holding onto things as she goes but no LOB. Gait Does the Patient Walk?: Yes Mode of Locomotion: Walk Anticipated Mode of Locomotion: Walk Walk 10 feet (QC): 4 Distance: 10'x2 Gait Assistive Device: None Comments/Gait Description slumped posture Balance Sitting Static: Normal Sitting Dynamic: Normal Standing Static: Fair Standing Dynamic: Fair Treatment BLE seated exercises x20 (AP, LAQ) Assessment/Needs Patient in recliner post tx with nurse call, phone, tray, all needs met. Patient has impaired mobility but is probably at her baseline. SBA for transfers and ambulation Rehab Potential: Fair PT Ch[facility] Goals Chcf Goals PT Ch[facility] Goals Time Frame: May 08, 2021 Roll Left & Right (QC): 6 Sit to Lying (QC): 6 Lying-Sitting on Side/Bed(QC): 6 Sit to Stand (QC): 6 Chair/Qcr-hh-Iczax Xfer(QC): 6 Walk 10 feet (QC): 6 Walk 50ft with 2 Turns (QC): 6 PT Plan Problem List Problem List: Activity Tolerance, Functional Strength, Safety, Balance, Gait, Transfer, Bed Mobility, ROM Treatment/Plan Treatment Plan: Continue Plan of Care Treatment Plan: Education, Functional Activity Jose L, Functional Strength, Gait, Safety, Therapeutic Exercise, Transfers Treatment Duration: May 08, 2021 Frequency: 6 times per week Estimated Hrs Per Day: .25 hour per day Patient and/or Family Agrees t: Yes Safety Risks/Education Patient Education: Gait Training, Transfer Techniques, Correct Positioning, Safety Issues Teaching Recipient: Patient Teaching Methods: Demonstration, Discussion Response to Teaching: Reinforcement Needed Discharge Recommendations Plan Patient will perform bed mobility and transfer training, balance and endurance training, functional strengthening, stair training, gait training, and education, to improve functional mobility and independence at home. Therapy Discharge Recommendati: Home & Family, Post Acute PT Time/GCodes Time In: 909 Time Out: 919 Total Billed Treatment Time: 10 Total Billed Treatment 1 visit TIERRA Winter' VIDAL MORIN PT May 01, 2021 09:30
--- NOTE | 2021-05-01 09:45 | Occupational Therapy Eval ---
OT Evaluation-General/PLF Medical Diagnosis Admission Date Apr 30, 2021 at 17:48 Medical Diagnosis: dyspnea, pleural effusion Onset Date: Apr 30, 2021 Therapy Diagnosis Therapy Diagnosis: n/a Precautions Precautions/Isolations: Standard Precautions Referral Physician: Yeny Hardwick DO Referral Reason: Evaluation/Treatment Medical History Additional Medical History HTN, neuropathy, Crohn's, hypothyroidism, DM Current History ED with SOB [id number], couple of weeks ago pt was diagnosed with PNA. Abx did not improve pt's symptoms Social History Current Living Status: Significant Other ADL-Prior Level of Function SCALE: Activities may be completed with or without assistive devices. 0-Utgqiavdle-yxwlpzc completes the activity by him/herself with no assistance from a helper. 5-Set-up or Clean-up Assistance-helper sets up or cleans up; patient completes activity. [place] assists only prior to or following the activity. 4-Supervision or Touching Assistance-helper provides verbal cues and/or touching/steadying and/or contact guard assistance as patient completes ac tivity. Assistance may be provided throughout the activity or intermittently. 3-Partial/Moderate Assistance-helper does LESS THAN HALF the effort. [place] lifts, holds or supports trunk or limbs, but provides less than half the effort. 2-Substantial/Maximal Assistance-helper does MORE THAN HALF the effort. [place] lifts or holds trunk or limbs and provides more than half the effort. 9-Ceokqpicv-xzlsvz does ALL the effort. Patient does none of the effort to complete the activity. Or, the assistance of 2 or more helpers is required for the patient to complete the activity. If activity was not attempted, code reason: 7-Patient Refused. 9-Not Applicable-not attempted and the patient did not perform the activity before the current illness, exacerbation or injury. 10-Not Attempted due to Environmental Limitations-(lack of equipment, weather restraints, etc.). 88-Not Attempted due to Medical Conditions or Safety Concerns. ADL PLOF Comments Pt reports IND with ADLs and functional mobility, no AD. She has a tub/shower with a step into it, and a SC to sit on. Pt not very forthcoming about her living environment, indicates she lives with someone, but did not reply when asked who she lived with. She reports having some steps into her house, but would not state how many. Self Care: Independent Functional Cognition: Independent DME/Equipment: Bath Chair, Tub/Shower OT Current Status Subjective Pt seated EOB, agreeable to OT tx Mental Status/Objective Patient Orientation: Person, Place, Situation Attachments: IV, Oxygen, Telemetry Current Hand Dominance: Right Upper Extremity ROM WFL Upper Extremity Strength grossly 3+/5 ADL-Treatment Eating (QC): 6 (Per pt report, pt currently NPO for procedure) Toileting Hygiene (QC): 6 (IND with hygiene and clothing management.) Other Treatments Pt sitting EOB, stood from EOB and performed functional mobility into bathroom without AD, SBA for IV pole. Pt completed toileting, then returned to her room, transferring to recliner. Pt reports she is at her baseline with ADLs, and doesn't want further OT services at this time. OT educated pt on UE exercises in order to increase strength and activity tolerance. Pt demo'd understanding, completing x3 reps shoulder flexion, and 3 reps elbow flexion/extension. Post tx, pt in recliner, call light in reach and all needs met. Education OT Patient Education: Correct positioning, Energy conservation, Modified ADL techniques, Progress toward Goal/Update tx plan, Purpose of tx/functional activities, Rehab process Teaching Recipient: Patient Teaching Methods: Discussion Response to Teaching: Verbalize Understanding OT Answering Service Agent Goals [facility] Goals 1=Demonstrate adherence to instructed precautions during ADL tasks. 2=Patient will verbalize/demonstrate understanding of assistive devices/modifications for ADL. 3=Patient will improve strength/tolerance for activity to enable patient to perform ADL's. OT Education/Plan Problem List/Assessment Assessment: No Skilled OT Needs ID'd No skilled OT services indicated at this time, as pt is independent with ADLs and is at her PLOF. Pt does not want further OT services, d/c from OT. Discharge Recommendations Plan/Recommendations: Discharge/Goals Met Treatment Plan/Plan of Care Patient would benefit from OT for education, treatment and training to promote independence in ADL's, mobility, safety and/or upper extremity function for ADL's. Plan of Care: ADL Retraining, Functional Mobility, UE Funct Exercise/Act Treatment Duration: May 01, 2021 Frequency: 1 time per week (eval only) Estimated Hrs Per Day: .25 hour per day Rehab Potential: Fair Time/GCodes Start Time: 09:12 Stop Time: 09:21 Total Time Billed (hr/min): 9 Billed Treatment Time 1, CARLOS TRENT OT May 01, 2021 09:45
[2021-05-01] MEDS ORDERED: LACTATED RINGERS 1,000 ML IV ONE (12:55)
[2021-05-01] MEDS: GABAPENTIN 600 MG (NEURONTIN) TAB PO SCH ×3 (13:00→21:07)
[2021-05-01] MEDS: NS IV 1000 ML 1,000 ML IV SCH (13:11)
[2021-05-01] MEDS ORDERED: fentaNYL INJ 100 MCG/2 ML AMP ONE (13:14)
[2021-05-01] MEDS ORDERED: proPOfol 200 MG/20 ML (DIPRIVAN) VIAL IV ONE ×2 (13:14→14:17)
[2021-05-01] MEDS ORDERED: LIDOCAINE 2% 20 ML (XYLOCAINE) VIAL ONE (13:14)
[2021-05-01] MEDS ORDERED: CYCLOBENZAPRINE 10 MG (FLEXERIL) TAB PO PRN (13:45)
--- NOTE | 2021-05-01 14:43 | Diagnostic Imaging Report ---
INDICATION: Status post bronchoscopy. TIME OF EXAM: 2:40 PM Comparison is made with prior chest from one day earlier. Heart size is stable. Right-sided sided pleural fluid appears to be decreased. There is a moderate left effusion with left basilar consolidation. No pneumothorax is identified status post bronchoscopy. IMPRESSION: No evidence of pneumothorax. There does appear to be some reduction in right-sided pleural fluid since examination one day earlier. Dictated by: Dictated on workstation # [id number]
--- NOTE | 2021-05-01 16:02 | Progress Note-Post Operative ---
Post-Operative Progess Note Surgeon (s)/Cash Reconciliation Specialist (s) Surgeon HI VELÁSQUEZ DO Cash Reconciliation Specialist: none Pre-Operative Diagnosis Pleural Effusion, Pneumonia Post-Operative Diagnosis Same plus mild mucous in bronchioles, no masses seen Procedure & Operative Findings Date of Procedure 05/01/21 Procedure Performed/Findings Bronchoscopy with flushing and mucous sample obtained Anesthesia Type GET Estimated Blood Loss Estimated blood loss (mL): none Specimens/Packing Specimens Removed bronchial washings with mucous HI VELÁSQUEZ DO May 01, 2021 16:02
--- NOTE | 2021-05-01 16:03 | Consultation-Cardiology ---
HPI-Cardiology Cardiology Consultation Date of Consultation 05/01/21 Date of Admission Time Seen by Provider: 15:58 Indication: Shortness of breath HPI 70-year-old lady with history of pneumonia, patient reported that she was diagnosed with pneumonia about a month ago, received 2 full courses of antibiotic, continue to have dyspnea. She was hospitalized in [place] about a month ago and she was told that she has ejection fraction around 40%. Seen in [place] emergency room with shortness of breath. She had pleural effusion and pericardial effusion. On my evaluation she was still having dyspnea, denied any chest pain. Denied any palpitation. No syncope. Home Medications & Allergies Allergies: Coded Allergies: No Known Drug Allergies (Unverified , 12/21/19) Home Medication List Reviewed: Yes EES-K[employer]jc-[employer] Hx Patient Social History Smoking Status: Current Everyday Smoker Type Used: Cigarettes 2nd Hand Smoke Exposure: Yes Recent Hopitalizations: No Have you traveled recently?: No Alcohol Use?: No Immunizations Up To Date Tetanus Booster (TDap): Unknown Date of Influenza Vaccine: Oct 31, 2020 Past Medical History Discussed below Family Medical History Significant Family History: Heart Disease (Mother from [place]), Hypertension (Father) Family Medical Hx Noncontributory Review of Systems-General Review of Systems Constitutional: see HPI; No chills, No diaphoresis; malaise EENTM: see HPI; No blurred vision, No double vision Respiratory: see HPI, cough; No dyspnea on exertion, No hemoptysis; short of breath Cardiovascular: see HPI; No chest pain, No edema Gastrointestinal: see HPI; No abdominal pain, No jaundice, No melena, No nausea, No vomiting Genitourinary: see HPI; No dysuria, No frequency, No hematuria : No Musculoskeletal: see HPI, muscle pain, muscle stiffness Skin: No change in color, No change in hair/nails Psychiatric/Neurological: See HPI; Denies Anxiety, Denies Depressed; Paresthesia; Denies Seizure, Denies Tremors Reviewed Test Results Reviewed Test Results Lab Laboratory Tests Test 04/30/21 20:37 05/01/21 05:02 05/01/21 05:10 05/01/21 11:09 Range/Units Glucometer 112 H 116 H 113 H 70-110 MG/DL White Blood Count 14.6 H 4.3-11.0 10^3/uL Red Blood Count 3.68 L 3.80-5.11 10^6/uL Hemoglobin 11.4 L 11.5-16.0 g/dL Hematocrit 36 35-52 % Mean Corpuscular Volume 98 80-99 fL Mean Corpuscular Hemoglobin 31 25-34 pg Mean Corpuscular Hemoglobin Concent 32 32-36 g/dL Red Cell Distribution Width 13.7 10.0-14.5 % Platelet Count 493 H 130-400 10^3/uL Mean Platelet Volume 8.5 L 9.0-12.2 fL Immature Granulocyte % (Auto) 1 % Neutrophils (%) (Auto) 82 H 42-75 % Lymphocytes (%) (Auto) 9 L 12-44 % Monocytes (%) (Auto) 6 0-12 % Eosinophils (%) (Auto) 3 0-10 % Basophils (%) (Auto) 0 0-10 % Neutrophils # (Auto) 11.9 H 1.8-7.8 10^3/uL Lymphocytes # (Auto) 1.4 1.0-4.0 10^3/uL Monocytes # (Auto) 0.9 0.0-1.0 10^3/uL Eosinophils # (Auto) 0.4 H 0.0-0.3 10^3/uL Basophils # (Auto) 0.1 0.0-0.1 10^3/uL Immature Granulocyte # (Auto) 0.1 0.0-0.1 10^3/uL Sodium Level 135 135-145 MMOL/L Potassium Level 3.9 3.6-5.0 MMOL/L Chloride Level 99 98-107 MMOL/L Carbon Dioxide Level 22 21-32 MMOL/L Anion Gap 14 5-14 MMOL/L Blood Urea Nitrogen 8 7-18 MG/DL Creatinine 0.72 0.60-1.30 MG/DL Estimat Glomerular Filtration Rate 91 BUN/Creatinine Ratio 11 Glucose Level 120 H 70-105 MG/DL Calcium Level 9.4 8.5-10.1 MG/DL Corrected Calcium 10.0 8.5-10.1 MG/DL Total Bilirubin 0.4 0.1-1.0 MG/DL Aspartate Amino Transf (AST/SGOT) 28 5-34 U/L Alanine Aminotransferase (ALT/SGPT) 21 0-55 U/L Alkaline Phosphatase 203 H 40-136 U/L Total Protein 6.9 6.4-8.2 GM/DL Albumin 3.2 3.2-4.5 GM/DL Radiology Date of Exam:04/30/21 CT ANGIO CHEST W PROCEDURE: CT angiography of the chest with contrast. TECHNIQUE: Multiple contiguous axial images were obtained through the chest after uneventful bolus administration of intravenous contrast. 3D reconstructed CTA MIP acquisitions were also performed. Auto Exposure Controls were utilized during the CT exam to meet ALARA standards for radiation dose reduction. INDICATION: Shortness of breath and elevated D-dimer. COMPARISON: No prior studies are available for comparison. FINDINGS: Evaluation of the pulmonary arterial system is without evidence of thromboembolism. No filling defects are seen within central, lobar, or segmental branches. The thoracic aorta shows atherosclerotic calcifications but is nonaneurysmal. No dissection is identified. There is a moderate-sized pericardial effusion. There are moderate bilateral pleural effusions. There is some consolidation in the lingula with air bronchograms. Dependent atelectasis and consolidation in the left lower lobe is noted. There is some compressive atelectasis in the right lower lobe. Upper abdomen is unremarkable. IMPRESSION: 1. No evidence of pulmonary embolism or acute aortic disease. 2. Pericardial effusion and bilateral pleural effusions. 3. Areas of parenchymal consolidation in the lingula and both lower lobes. Dictated by: Dictated on workstation # [id number] Dict: 04/30/21 1515 Trans: 04/30/21 1547 [id number] Interpreted by: MARSHALL JOHNSON MD Electronically signed by: MARSHALL JOHNSON MD 04/30/21 1547 Physical Exam Physical Exam Vital Signs Vital Signs - First Documented 04/30/21 04/30/21 04/30/21 12:00 16:58 18:15 Temp 35.9 Pulse 122 Resp 20 B/P (MAP) 117/88 (98) Pulse Ox 95 O2 Delivery Room Air O2 Flow Rate 2.00 FiO2 21 Capillary Refill : Less Than 3 Seconds Height, Weight, BMI Height: '" Weight: lbs. oz. kg; 33.75 BMI Method: General Appearance: Anxious (to go home), Obese Eyes: Bilateral Eye PERRL, Bilateral Eye EOMI HEENT: PERRL/EOMI, TMs Normal, Normal ENT Inspection, Pharynx Normal, Moist Mucous Membranes Neck: Full Range of Motion, Normal Inspection, Non Tender, Supple, Carotid Bruit Respiratory: No Accessory Muscle Use, No Respiratory Distress, Decreased Breath Sounds, Wheezing Cardiovascular: No Murmur, Tachycardia Gastrointestinal: Normal Bowel Sounds, No Organomegaly, No Pulsatile Mass, Non Tender, Soft Back: Normal Inspection, No CVA Tenderness, No Vertebral Tenderness Extremity: Normal Inspection, Pedal Edema Neurologic/Psychiatric: Alert, Oriented x3, Normal Mood/Affect Skin: Normal Color, Warm/Dry Lymphatic: No Adenopathy A/P-Cardiology Admission Diagnosis Shortness of breath Pleural effusion Congestive heart failure, acute left ventricular systolic dysfunction, unknown etiology Hypertension Assessment/Plan Shortness of breath, pleural effusion, underwent bronchoscopy today. Feeling better, still having some shortness of breath Congestive heart failure, ejection fraction 25 to 30%, unknown etiology. Probably ischemic in nature. I will discuss with the patient regarding the need for a cardiac catheterization. We will start on beta-blockers and MILES inhibitor, will consider LifeVest. Pericardial effusion, small, no hemodynamic significance. Continue to monitor Hypothyroidism, managed by primary care physician Hypertension, monitor blood pressure Hyperlipidemia Tobaccoism Obesity. KEYONA RUSSELL MD May 01, 2021 16:03
--- NOTE | 2021-05-01 20:15 | OPERATIVE REPORT ---
DATE OF SERVICE: 05/01/2021 PREOPERATIVE DIAGNOSIS: Pleural effusion, chronic pneumonia. POSTOPERATIVE DIAGNOSIS: Pleural effusion, chronic pneumonia with some mucus in the bronchioles. PROCEDURE: Bronchoscopy with washing and suctioning mucus for culture. SURGEON: Kwabena Arredondo DO FREIGHT BRAKEMAN: None. ANESTHESIA: General endotracheal tube. SPECIMEN: Washings and mucous from bilateral bronchioles. BLOOD LOSS: None. FLUIDS: Per anesthesia. POSTOPERATIVE CONDITION: Stable. INDICATION FOR PROCEDURE: The patient is a 70-year-old female who has a pleural effusion and chronic pneumonia that has been treated for a month of antibiotics and is not getting any better, needed a bronchoscopy to rule out masses or mucous plugging or any other possible pathology. FINDINGS: The patient had some mucus in the bronchioles, but no real plugging. There was no erythema. I did not see any masses. PROCEDURE NOTE: After informed consent was obtained, the patient was brought to the endoscopy suite. She was intubated by the MATERIALS AND PROCESSES MANAGER, then placed the bronchoscope down the ET tube, saw the carlos, took a picture of this and then with that went into the right lung going into the upper, middle and lower lobe. There was some mild mucus, did a lot of washing in here and then suctioned this out, went pretty deep into each of these lobes, did not see any masses, did not see any other obvious pathology. There was no inflammation. Pulled back to the carlos and then went into the left side, looked in the left lobes, going out as far as possible, had the bronchoscope fully inserted, again did not see any masses. No bleeding, no inflammation and at this point pulled the bronchoscope out, had suctioned up some mucus and washing. We sent to pathology. The patient tolerated the procedure and picture was taken of all of this. She was recovered and sent back to the floor in stable condition. Job ID: [id number] DocumentID: [id number] Dictated Date: 05/01/2021 17:43:04 Union Organizer Date: 05/01/2021 20:14:38 Dictated By: KWABENA ARREDONDO DO PLAINVIEW HOSPITALAshley
[2021-05-01] MEDS ORDERED: sulfaSALAzine 500 MG (AZULFIDINE) TAB PO SCH (21:00)
[2021-05-02] MEDS: RT-ALBUTEROL/IPRATROPIUM 3 ML (DUONEB) VIAL INH SCH ×2 (02:40→14:20)
[2021-05-02 03:38] VITALS: BP 125/66
[2021-05-02 05:51] LABS: BASOPHILS # (AUTO) 0.1 10^3/uL (0.0-0.1); BASOPHILS % (AUTO) 1 % (0-10); EOSINOPHILS # (AUTO) 0.4 10^3/uL (0.0-0.3); EOSINOPHILS % (AUTO) 4 % (0-10); HEMATOCRIT 34 % (35-52); HEMOGLOBIN 10.8 g/dL (11.5-16.0); LYMPHOCYTES # (AUTO) 1.5 10^3/uL (1.0-4.0); LYMPHOCYTES % (AUTO) 15 % (12-44); MEAN CORPUSCULAR HEMOGLOBIN 31 pg (25-34); MEAN CORPUSCULAR HGB CONC 32 g/dL (32-36); MEAN CORPUSCULAR VOLUME 97 fL (80-99); MEAN PLATELET VOLUME 8.5 fL (9.0-12.2); MONOCYTES # (AUTO) 0.7 10^3/uL (0.0-1.0); MONOCYTES % (AUTO) 7 % (0-12); NEUTROPHILS # (AUTO) 7.5 10^3/uL (1.8-7.8); NEUTROPHILS % (AUTO) 74 % (42-75); PLATELET COUNT 448 10^3/uL (130-400); WHITE BLOOD COUNT 10.1 10^3/uL (4.3-11.0)
[2021-05-02 06:29] LABS: ALBUMIN 2.9 GM/DL (3.2-4.5); BILIRUBIN,TOTAL 0.4 MG/DL (0.1-1.0); CALCIUM 8.7 MG/DL (8.5-10.1); CREATININE SERUM 0.62 MG/DL (0.60-1.30); POTASSIUM 3.5 MMOL/L (3.6-5.0); TOTAL PROTEIN 6.3 GM/DL (6.4-8.2)
[2021-05-02] MEDS: MULTIVIT W/MINERALS TAB (THERAGRAN M) PO SCH ×2 (06:30→06:35)
[2021-05-02] MEDS: LEVOTHYROXINE 50 MCG (LEVOTHROID) TAB PO SCH ×2 (06:30→06:35)
[2021-05-02] MEDS: GLIMEPIRIDE 1 MG (AMARYL) TAB PO SCH ×2 (06:31→06:35)
[2021-05-02] MEDS: inSUlin ASPART (NovoLOG) 1 UNIT/0.01 ML (CHARGE PER UNIT) SC SCH ×2 (06:34→12:52)
--- NOTE | 2021-05-02 07:32 | Progress Note - Hospitalist ---
Subjective HPI/CC On Admission Date Seen by Provider: May 02, 2021 Chief complaint: Shortness of breath History of present illness: This is a 70-year-old white female who presented to [place] ER with shortness of breath. She had been struggling with upper respiratory illnesses and pneumonias and has had 3 rounds of antibiotics from her PCP but continued to worsen. She was found to have bilateral pleural effusions and a pericardial effusion and requiring oxygen supplementation for hypoxia. Dr. Arredondo was willing to perform a bronchoscopy and Dr. Jones is pursuing sources of causation of pleural effusions. Patient does not appear to have any active infection. She is not willing to provide details because she just wants to go home. She appears to be very chronically ill and she does smoke. Focused Exam Lactate Level 04/30/21 12:15: Lactic Acid Level 1.90 Objective Exam Vital Signs Vital Signs Date Time Temp Pulse Resp B/P (MAP) Pulse Ox O2 Delivery O2 Flow Rate FiO2 05/02/21 14:46 99 Nasal Cannula 3.00 05/02/21 13:00 109 05/02/21 12:30 15 140/77 (98) 05/02/21 08:32 36.6 04/30/21 18:15 21 Capillary Refill : Less Than 3 Seconds Results/Procedures Lab Laboratory Tests 05/02/21 05:30 Patient resulted labs reviewed. Diagnosis/Problems Diagnosis/Problems (1) Pericardial effusion Status: Acute (2) Dyspnea Status: Acute Qualifiers: Dyspnea type: shortness of breath Qualified Codes: R06.02 - Shortness of breath (3) Pleural effusion Status: Acute WAQAS ARCE DO May 02, 2021 07:32
[2021-05-02 08:32] VITALS: BP 120/62
[2021-05-02] MEDS ORDERED: RX-CYCLOBENZAPRINE 10 MG (FLEXERIL) TAB PPK#3 PO SCH (09:00)
[2021-05-02] MEDS ORDERED: VIT K1 PO SCH (09:00)
[2021-05-02] MEDS ORDERED: ALLOPURINOL 300 MG (ZYLOPRIM) TAB PO SCH (09:00)
[2021-05-02] MEDS ORDERED: ASPIRIN 81 MG CHEW (CHILDREN'S ASA) PO SCH (09:00)
[2021-05-02] MEDS ORDERED: FOLIC ACID PO SCH (09:00)
[2021-05-02] MEDS ORDERED: [UNRECOGNIZED DRUG - OTHER] PO SCH (09:00)
[2021-05-02] MEDS ORDERED: lisINopril 20 MG (PRINIVIL) TABLET PO SCH (09:00)
[2021-05-02] MEDS ORDERED: LORATADINE (CLARITIN) 10 MG TAB PO SCH (09:00)
[2021-05-02] MEDS ORDERED: MULTIVIT MIN PO SCH (09:00)
--- NOTE | 2021-05-02 09:00 | Cardiology Progress Note ---
Subjective Date Seen by Provider: May 02, 2021 Time Seen by Provider: 08:56 Subjective/Events-last exam Patient was seen at bedside, feeling better today. No chest pain. Noted to be tachycardic Review of Systems General: No Chills, No Night Sweats, No Fatigue, No Malaise, No Appetite, No Other HEENT: No Head Aches, No Visual Changes, No Eye Pain, No Ear Pain, No Dy sphasia, No Sinus Congestion, No Post Nasal Drip, No Sore Throat, No Other Pulmonary: Dyspnea; No Cough, No Pleuritic Chest Pain, No Other Cardiovascular: No: Chest Pain, Palpitations, Orthopnea, Paroxysmal Noc. Dyspnea, Edema, Lt Headedness, Other Focused Exam Lactate Level 04/30/21 12:15: Lactic Acid Level 1.90 Objective-Cardiology Exam Last Set of Vital Signs Vital Signs 04/30/21 05/02/21 05/02/21 05/02/21 18:15 08:32 12:30 13:00 Temp 36.6 Pulse 109 Resp 15 B/P (MAP) 140/77 (98) Pulse Ox 97 O2 Delivery Nasal Cannula O2 Flow Rate 2.00 FiO2 21 I&O Intake and Output 05/02/21 00:00 Intake Total 1500 ml Balance 1500 ml Intake Oral 750 ml IV Total 750 ml # Voids 6 # Bowel Movements 1 General: Alert, Oriented X3, Cooperative HEENT: Atraumatic, PERRLA Neck: Supple, No JVD, No Thyromegaly Lungs: Normal Air Movement, Other (Bilateral rhonchi) Heart: Normal S1, Normal S2, No Murmurs, Other (Tachycardia) Abdomen: Normal Bowel Sounds, Soft, No Tenderness, No Hepatosplenomegaly, No Masses Extremities: No Clubbing, No Cyanosis, No Edema, Normal Pulses, No Tenderness/Swelling Skin: No Rashes, No Breakdown, No Significant Lesion Neuro: Normal Gait, Normal Speech, Strength at 5/5 X4 Ext, Normal Tone, Sensation Intact Psych/Mental Status: Mental Status NL, Mood NL Results Lab Laboratory Tests 05/02/21 05:30 A/P-Cardiology Admission Diagnosis Shortness of breath Pleural effusion Congestive heart failure, acute left ventricular systolic dysfunction, nonischemic cardiomyopathy Hypertension Assessment/Plan Shortness of breath, pleural effusion, underwent bronchoscopy. Feeling better, still having some shortness of breath Congestive heart failure, ejection fraction 25 to 30%, unknown etiology. Nonischemic cardiomyopathy Scheduled for cardiac catheterization today I will discontinue lisinopril on May 02, 2021 and starting losartan, planning to switch to Entresto on May 05, 2021 Starting Toprol 25 mg daily and monitor tolerance and response Sinus tachycardia, starting low-dose beta-blockers. Continue to monitor closely Pericardial effusion, small, no hemodynamic significance. Continue to monitor Hypothyroidism, managed by primary care physician Hypertension, monitor blood pressure Hyperlipidemia, I will evaluate lipid profile Tobaccoism, educated on smoking cessation Obesity. KEYONA RUSSELL MD May 02, 2021 09:00
--- NOTE | 2021-05-02 09:01 | Conscious Sedation/ASA ---
Conscious Sedation Pre-Proced Time 09:01 ASA Score 3 For ASA 3 and 4: Consider anesthesia and medical clearance. Also, for patients with a history of failed moderate sedation consider anesthesia. Airway Lungs Heart ASA score ASA 1: a normal healthy patient ASA 2: a patient with a mild systemic disease (mid diabetes, controlled hypertension, obesity x ASA 3: a patient with a severe systemic disease that limits activity (angina, COPD, prior Myocardial infarction) ASA 4: a patient with an incapacitating disease that is a constant threat to life (CHF, renal failure) ASA 5: a moribund patient not expected to survive 24 hrs. (ruptured aneurysm) ASA 6: a declared brain- patient whose organs are being harvested. For emergent operations, add the letter E after the classification Mallampati Classification Grade 3 Sedation Plan Analgesia, Amnesia, Plan communicated to team members, Discussed options with patient/fam, Discussed risks with patient/fam The patient is an appropriate candidate to undergo the planned procedure, sedation, and anesthesia. The patient immediately re-assessed prior to indication. KEYONA RUSSELL MD May 02, 2021 09:01
[2021-05-02 09:20] LABS: CHOLESTEROL 106 MG/DL (< 200); HDL CHOLESTEROL 26 MG/DL (40-60); TRIGLYCERIDES 94 MG/DL (<150); VLDL CHOLESTEROL 19 MG/DL (5-40)
--- NOTE | 2021-05-02 09:25 | Physical Therapy Progress Note ---
Therapy Progress Note Nursing reports Pt is headed to heart cath soon. PT held, will resume on 05/04/2021 as ordered post procedure. SRIKANTH FISCHER DPApolinar May 02, 2021 09:25
[2021-05-02] MEDS ORDERED: HEParin 1000 UNIT/ML (10ML VIAL) FOR BOLUS ONE (09:49)
[2021-05-02] MEDS ORDERED: MIDAZOLAM 5 MG/5 ML (VERSED) VIAL ONE (09:49)
[2021-05-02] MEDS ORDERED: VERAPAMIL 5 MG/2 ML (CALAN) VIAL IV ONE (09:49)
[2021-05-02] MEDS ORDERED: fentaNYL INJ 100 MCG/2 ML AMP ONE (09:49)
[2021-05-02] MEDS ORDERED: LIDOCAINE 2% 20 ML (XYLOCAINE) VIAL ONE (09:50)
[2021-05-02] MEDS ORDERED: NITRO DRIP 25000 MCG/D5W 250 ML IV ONE (09:50)
[2021-05-02] MEDS ORDERED: HEParin (CATH LAB) 2,000 ML IV ONE (09:50)
[2021-05-02] MEDS ORDERED: NS IV 1000 ML 1,000 ML ONE (09:50)
[2021-05-02] MEDS ORDERED: LOSARTAN 25 MG (COZAAR) TAB PO SCH (10:00)
[2021-05-02] MEDS ORDERED: ASPIRIN 325 MG (5 GR) TABLET ONE (11:22)
[2021-05-02] MEDS ORDERED: CLOPIDOGREL 300 MG (PLAVIX) TABLET PO ONE (11:22)
--- NOTE | 2021-05-02 11:26 | Cardiac Cath Report ---
Cardiac Cath Report Physician (s)/Um Specialist (s) Physician KEYONA RUSSELL MD Pre-Procedure Diagnosis Pre-Procedure Diagnosis: Coronary artery disease Post-Procedure Note Procedure Start Date: May 02, 2021 Name of Procedure: Left heart catheterization Stenting to the right coronary artery Findings/Procedure Note PROCEDURE NOTE: 70-year-old lady with dilated cardiomyopathy, hypertension, pericardial and pleural effusion. Scheduled for cardiac catheterization possible PTCA. After explaining the procedure to the patient, all pros and cons were explained, all questions were answered. The patient signed the consent and then she was placed on the cardiac catheterization laboratory. Groin was prepped SL fashion local anesthesia was used. Sheath placed in the right radial artery, [place] catheter was advanced, intubated selectively the left anterior descending artery, angiogram was then entered and intubated the right coronary artery, angiogram was done, I was unable to engage the circumflex artery. Exchanged the catheter and used Greer left catheter and advanced it in the left circumflex artery and angiogram was done. Patient had severe proximal right coronary artery stenosis that is small nondominant artery. I proceeded with 6000 units of heparin total then Greer right guide with sideholes advanced to the right coronary artery, I had difficulty advancing the wire. I was unable to advance a stent through the proximal right coronary artery, did balloon angioplasty using 2.5 x 20 mm trek then attempted again without success and lost the position of the wire and the catheter. I advanced a whisper extra-support wire to the distal right coronary artery and was able to slide skypoint stent 2.5 x 15 mm then expanded to 2.75 mm with excellent results. Distal right coronary artery has moderate disease, the artery is very small. At the end of the procedure the sheath was removed. Vascular band was used FINDINGS: Hemodynamics LV 127/5, end-diastolic pressure of 5 Aorta was not recorded. There is no significant gradient during pullback ANATOMY: Left Main is absent, there are separate ostium to the LAD and circumflex artery Left Anterior Descending is moderate in size with mild disease nonobstructive disease Left Circumflex is dominant artery with mild disease none obstructive disease Right Coronary Artery is small nondominant artery with severe stenosis proximally, complex intervention with balloon angioplasty then deployment of elías point stent 2.5 x 15 mm expanded to 2.7 mm with excellent results LV Gram was not done, pressure was measured CONCLUSION: 1. Severe proximal right coronary artery stenosis, complex intervention with balloon angioplasty then deployment of elías point stent 2.5 x 15 mm expanded to 2.77 mm with excellent results 2. Separate ostium of the LAD and circumflex artery with mild to moderate disease nonobstructive disease, dominant circumflex artery 3. Normal left ventricular end-diastolic pressure DISCUSSION AND RECOMMENDATION: Patient was loaded with aspirin and Plavix. Continue with medical treatment Anesthesia Type: Conscious Sedation Estimated blood loss (mL): 25 ml Contrast Amount: 134 ml Total Radiation Dose: 2295 mGy Post-Procedure Diagnosis Post-operative diagnosis: Coronary artery disease Congestive heart failure, chronic compensated left ventricular systolic dysfunction, nonischemic cardiomyopathy Pleural effusion Pericardial effusion KEYONA RUSSELL MD May 02, 2021 11:26
[2021-05-02 11:30] VITALS: BP 133/70
[2021-05-02] MEDS ORDERED: NS IV 1000 ML 1,000 ML IV SCH (11:30)
[2021-05-02 11:45] VITALS: BP 140/77
[2021-05-02 12:00] VITALS: BP 134/80
[2021-05-02 12:30] VITALS: BP 140/77
[2021-05-02] MEDS: GABAPENTIN 600 MG (NEURONTIN) TAB PO SCH ×3 (14:06→16:18)
[2021-05-02] MEDS: DOCUSATE SODIUM 100 MG (COLACE) CAP PO SCH (14:08)
[2021-05-02] MEDS ORDERED: CLOP75TA28 PO (15:20)
[2021-05-02] MEDS ORDERED: LOSA25TA41 PO (15:20)
[2021-05-02] MEDS ORDERED: MTP25TSR PO (15:20)
--- NOTE | 2021-05-02 15:20 | Discharge Inst-Post CATH ---
Discharge Inst-CATH/EP Problems Reviewed?: Yes Post Cardiac Cath/EP D/C Inst Follow Up/Plan Appointment with Dr. Jones's office in 2 weeks <b>CARDIAC CATH/EP PROCEDURE DISCHARGE INSTRUCTIONS</b> ACTIVITY * Go Home directly and rest. * Limit activity of the leg (or wrist if it was used) for 7 days including aerobics, swimming, jogging, bicycling, etc. * Restrict stair-climbing for 7 days if possible, if not, climb up with your non-cath leg, then bring together on the same step. * Avoid lifting, pushing, pulling or excessive movement of the affected extremity for 7 days. * Customary sexual activity may be resumed after 2 days-use caution not to use a position that strains or causes pain to the affected extremity. * No driving for 24 hours. * NO SMOKING. * Avoid straining for bowel movements for 7 days. * Gentle walking on level ground is allowed. * Returning to work will depend on the type of procedure and the results. Your doctor will discuss this with you. CALL YOUR DOCTOR FOR ANY OF THE FOLLOWING: *If bleeding from the puncture site occurs- Apply gentle pressure to site with clean cloth and call your doctor or EMS. * If a knot or lump forms under the skin, increases in size, or causes pain. * If bruising appears to be worsening or moving further down your leg instead of disappearing. * Temperature above 101 F. CARE OF YOUR GROIN INCISION; * Bruising or purple discoloration of the skin near the puncture site is common. * You may shower only, no bathtub bathing for 5 days. Be careful to avoid slipping as your leg may feel stiff. * If a closure device was used on your femoral artery, please see the attached guide regarding care of the device and your leg. * Leave dressing on FOR 24 hours. CARE OF YOUR WRIST INCISION; * Bruising or purple discoloration of the skin near the puncture site is common. * You may shower. * DO NOT submerge wrist. * Leave dressing on FOR 24 hours. KEYONA JONES MD May 02, 2021 15:20
--- NOTE | 2021-05-02 15:35 | Discharge Summary ---
Discharge Summary Hospital Course Was the Problem List Reviewed?: Yes Problems/Dx: (1) Pericardial effusion Status: Acute (2) Dyspnea Status: Acute Qualifiers: Qualified Codes: R06.02 - Shortness of breath (3) Pleural effusion Status: Acute Hospital Course Date of Admission: Apr 30, 2021 at 17:48 Admission Diagnosis : Family Physician/Provider: Alex Aldrich MD Date of Discharge: 05/02/21 Discharge Diagnosis: Bilateral pleural effusions, shortness of breath, pericardial effusion, cardiac cath with stent placed in RCA, smoker Hospital Course: Patient had an uneventful hospital course after he was admitted for shortness of breath and found to have bilateral pleural effusions and required bronchoscopy due to multiple rounds of antibiotics given by PCP. She underwent extensive work-up for pericardial effusion and pleural effusions. Bronc was negative for infection. Cardiac cath performed with deployment of stent in RCA. Patient was insistent on going home. Smoking cessation counseled. Refused to walk for home oxygen study. Labs and Pending Lab Test: Laboratory Tests 05/01/21 20:24: Glucometer 184H 05/02/21 05:30: White Blood Count 10.1, Red Blood Count 3.49L, Hemoglobin 10.8L, Hematocrit 34L, Mean Corpuscular Volume 97, Mean Corpuscular Hemoglobin 31, Mean Corpuscular Hemoglobin Concent 32, Red Cell Distribution Width 13.6, Platelet Count 448H, Mean Platelet Volume 8.5L, Immature Granulocyte % (Auto) 1, Neutrophils (%) (Auto) 74, Lymphocytes (%) (Auto) 15, Monocytes (%) (Auto) 7, Eosinophils (%) (Auto) 4, Basophils (%) (Auto) 1, Neutrophils # (Auto) 7.5, Lymphocytes # (Auto) 1.5, Monocytes # (Auto) 0.7, Eosinophils # (Auto) 0.4H, Basophils # (Auto) 0.1, Immature Granulocyte # (Auto) 0.1, Sodium Level 136, Potassium Level 3.5L, Chloride Level 101, Carbon Dioxide Level 22, Anion Gap 13, Blood Urea Nitrogen 5L, Creatinine 0.62, Estimat Glomerular Filtration Rate 97, BUN/Creatinine Ratio 8, Glucose Level 103, Calcium Level 8.7, Corrected Calcium 9.6, Total Bilirubin 0.4, Aspartate Amino Transf (AST/SGOT) 28, Alanine Aminotransferase (ALT/SGPT) 17, Alkaline Phosphatase 167H, Total Protein 6.3L, Albumin 2.9L 05/02/21 09:04: Triglycerides Level 94, Cholesterol Level 106, LDL Cholesterol Direct 65, VLDL Cholesterol 19, HDL Cholesterol 26L Home Meds Active Losartan Potassium 25 Mg Tablet 25 Mg PO DAILY Metoprolol Succinate 25 Mg Tab.er.24h 25 Mg PO DAILY Clopidogrel (Clopidogrel Bisulfate) 75 Mg Tablet 75 Mg PO DAILY Reported Multi For Her 50 Plus Softgel (Multivit-Min/Folic Acid/Vit K1) 1 Each Capsule 1 Each PO DAILY Cyclobenzaprine HCl 10 Mg Tablet 20 Mg PO DAILY TAKES 2 (10MG) TABS Furosemide 20 Mg Tablet 20 Mg PO DAILY Aspirin 81 Mg Tab.chew 81 Mg PO DAILY Loratadine 10 Mg Tablet 10 Mg PO DAILY Sulfasalazine 500 Mg Tablet 500 Mg PO BID Allopurinol 300 Mg Tablet 300 Mg PO DAILY Glimepiride 1 Mg Tablet 1 Mg PO DAILY Levothyroxine Sodium 50 Mcg Tablet 50 Mcg PO DAILY Lisinopril 20 Mg Tablet 20 Mg PO DAILY Atorvastatin Calcium 20 Mg Tablet 20 Mg PO DAILY Gabapentin 600 Mg Tablet 600 Mg PO QID Tramadol HCl 50 Mg Tablet 150-200 Mg PO DAILY PRN TAKES 3 TO 4 (50MG) TABS Assessment/Pt Instructions PCP in 1 week Discharge Planning: <30 minutes discharge planning Discharge Instructions Discharge Diet: No Restrictions Activity as Tolerated: Yes Discharge Physical Examination Vital Signs Vital Signs Date Time Temp Pulse Resp B/P (MAP) Pulse Ox O2 Delivery O2 Flow Rate FiO2 05/02/21 14:46 99 Nasal Cannula 3.00 05/02/21 13:00 109 05/02/21 12:30 15 140/77 (98) 05/02/21 08:32 36.6 04/30/21 18:15 21 General Appearance: No Apparent Distress, WD/WN Allergies: Coded Allergies: No Known Drug Allergies (Unverified , 12/21/19) Discharge Summary Date of Admission Apr 30, 2021 at 17:48 Date of Discharge Discharge Date: May 02, 2021 Admission Diagnosis Assessment: Dyspnea Recurrent pneumonia completed multiple rounds of antibiotics Hypoxia requiring supplemental oxygen Pericardial effusion Pleural effusions Smoker Crohn's disease Hypothyroidism Diabetes Hypertension Plan: Bronchoscopy Dr. Jones Consult Oxygen Discharge Diagnosis (1) Pericardial effusion Status: Acute (2) Dyspnea Status: Acute Qualifiers: Qualified Codes: R06.02 - Shortness of breath (3) Pleural effusion Status: Acute WAQAS ARCE DO May 02, 2021 15:35
--- NOTE | 2021-05-02 16:47 | Anesthesia-General Post-Op ---
General Patient Condition Mental Status/LOC: Same as Preop Cardiovascular: Satisfactory Nausea/Vomiting: Absent Respiratory: Satisfactory Pain: Controlled Complications: Absent Post Op Complications Complications None Follow Up Care/Instructions Patient Instructions None needed. Anesthesia/Patient Condition Patient Condition Patient is doing well, no complaints, stable vital signs, no apparent adverse anesthesia problems. No complications reported per nursing. NGUYỄN CASTRO CRNA May 02, 2021 16:47
[2021-05-03] MEDS ORDERED: CLOPIDOGREL 75 MG (PLAVIX) TABLET PO SCH (09:00)
[2021-05-03] MEDS ORDERED: ASPIRIN E.C. 81 MG (ECOTRIN) TAB PO SCH (09:00)
== END 2021-05-02 16:40 | disposition home or self-care (01) ==
LOC: EDUNIT# 12:00 → ER FS 12:01 → CSD 17:48
PROVIDERS: ADMIT Internal Medicine; ATTEND Internal Medicine
DX: J18.9 Pneumonia, unspecified organism (principal); I11.0 Hypertensive heart disease with heart failure; I50.21 Acute systolic (congestive) heart failure; I31.3 Pericardial effusion (noninflammatory); R09.02 Hypoxemia; F17.210 Nicotine dependence, cigarettes, uncomplicated; E66.9 Obesity, unspecified; Z68.34 Body mass index [BMI] 34.0-34.9, adult; I42.9 Cardiomyopathy, unspecified; Z20.822 Contact with and (suspected) exposure to COVID-19; E11.40 Type 2 diabetes mellitus with diabetic neuropathy, unspecified; Z79.84 Long term (current) use of oral hypoglycemic drugs; E03.9 Hypothyroidism, unspecified; K50.90 Crohn's disease, unspecified, without complications; Z79.82 Long term (current) use of aspirin
CPT/HCPCS: 31622; 36415; 71045; 71046; 71275; 80053 ×3; 80061; 82805; 82947 ×2; 83605; 84443; 84484; 85007; 85025 ×2; 85027; 85379; 86038; 86141; 86618; 86666 ×2; 86668; 86757 ×2; 87636; 87804; 93306; 93458; 94640 ×3; 94664; 94761; 97162; 97165; 99284; C1725; C1769 ×2; C1874; C1887; C1894; C9600; Q9967

== ENCOUNTER → 2021-05-22 | Outpatient (CLI) | payer MEDICARE ==
[~2021-05-22] MED LIST changes: +CLOP75TA28 PO; +CYCL10TA25 PO; +FURO20TA4 PO; +LOSA25TA41 PO; +MTP25TSR PO; +MULT400C3 PO
--- NOTE | 2021-05-22 09:52 | Diagnostic Imaging Report ---
INDICATION: Hypertension. Time of Exam: 8:57 AM Correlation is made with prior chest from 04/30/2021. There is a large left pleural effusion which has increased since prior exam. There is some associated compressive atelectasis in the left base. A small right effusion is noted. There is no pneumothorax identified. IMPRESSION: Large left pleural effusion, increased since exam from 04/30/2021. Dictated by: Dictated on workstation # [id number]
[2021-05-22 10:26] LABS: POTASSIUM 3.5 MMOL/L (3.6-5.0)
[2021-05-22 10:27] LABS: ALBUMIN 3.4 GM/DL (3.2-4.5); BILIRUBIN,TOTAL 0.4 MG/DL (0.1-1.0); CALCIUM 9.1 MG/DL (8.5-10.1); CREATININE SERUM 0.74 MG/DL (0.60-1.30); TOTAL PROTEIN 7.8 GM/DL (6.4-8.2)
== END ==
LOC: RAD FS 08:35
PROVIDERS: ATTEND Internal Medicine Cardiovascular Disease
DX: J90 Pleural effusion, not elsewhere classified (principal); I10 Essential (primary) hypertension; I25.10 Atherosclerotic heart disease of native coronary artery without angina pectoris; I42.9 Cardiomyopathy, unspecified
CPT/HCPCS: 36415; 71046; 80053

== ENCOUNTER → 2021-09-29 | Outpatient (CLI) | payer MEDICARE | LOC: CARDFS 13:27 | PROVIDERS: ATTEND Internal Medicine Cardiovascular Disease | DX: I11.9 Hypertensive heart disease without heart failure (principal); I25.10 Atherosclerotic heart disease of native coronary artery without angina pectoris | CPT/HCPCS: 93306 ==